=== PATIENT | male | born 1955 | race Caucasian/White ===

== ENCOUNTER 2024-10-12 07:59 | Outpatient (REF) | payer MEDICARE, SELFPAY ==
[2024-10-12 17:57] LABS: MANUAL DIFF FLAG NO
[2024-10-12 18:02] LABS: Basophils Percent Auto 0.3 % (0-2); Eosinophils Absolute Auto 0.3 X10*3/uL (0.0-0.4); Eosinophils Percent Auto 2.7 % (0-4); Hematocrit 42.8 % (42.0-52.0); Hemoglobin 14.4 g/dl (14.0-18.0); Imm Gran Abs Auto 0.04 X10*3/uL (0.00-0.03); Imm Gran Pct Auto 0.4 % (0.0-0.4); Lymphocytes Percent Auto 21.4 % (20-40); Mean Corpuscular HGB Conc 33.6 g/dl (31.0-36.0); Mean Corpuscular Hemoglobin 32.3 pg (27.0-33.0); Mean Platelet Volume 10.5 fL (9.4-12.4); Monocytes Absolute Auto 0.7 X10*3/uL (0.1-1.2); Monocytes Percent Auto 7.3 % (2-11); Neutrophils Absolute Auto 6.2 x10*3/uL (2.0-8.3); Neutrophils Percent Auto 67.9 % (45-73); Platelet Count 225 X10*3/uL (160-400); Red Blood Count 4.46 X10*6/uL (4.60-5.80); Red Cell Distribution Width 14.3 % (11.0-16.0); White Blood Count 9.1 X10*3/uL (4.8-10.8)
[2024-10-12 18:19] LABS: Alanine Aminotransferase 43 U/L (0-40); Aspartate Amino Transferase 49 U/L (5-37); C Reactive Protein 0.24 mg/dL (< or = 0.50); Estimated Glomerular Filt Rate 52
[2024-10-12 18:51] LABS: Erythrocyte Sedimentation Rate 2 MM/HR (0-15)
[2024-10-13 04:30] LABS: HBS Num1 196.28 mIU/mL (0-7.99); HBc Num1 0.07 S/CO (0.00-0.79); HBsAGNum1 0.48 S/CO (0.00-0.99); Hepatitis B Core Antibody Nonreactive (Nonreactive); Hepatitis B Surface Antigen Negative (Negative); ~HepC Num1 0.08 S/CO (0.00-0.79); ~Hepatitis B Surface Antibody REACTIVE (Nonreactive); ~Hepatitis C Antibody Nonreactive (Nonreactive)
[2024-10-15 18:04] LABS: TS Negative Control Passed; TS Panel A 0; TS Panel B 0; TS Positive Control Passed; TSpotTB Negative (Negative)
== END 2024-10-12 08:00 | disposition home or self-care (01) ==
LOC: HO.HKASLDS 07:59
PROVIDERS: Visit Provider Internal Medicine Rheumatology
DX: M07.60 Enteropathic arthropathies, unspecified site (principal); M65.311 Trigger thumb, right thumb; K50.90 Crohn's disease, unspecified, without complications; Z79.60 Long term (current) use of unspecified immunomodulators and immunosuppressants
CPT/HCPCS: 20550; 20552; 36415; 82565; 84450; 84460; 85025; 85652; 86140; 86481; 86704; 86706; 86803; 87340; 99212; J2003; J3301

== ENCOUNTER 2024-10-12 07:59 | Outpatient (AMB) | payer MEDICARE, SELFPAY ==
[2024-10-12 08:01] VITALS: BP 120/70; PULSE 68; O2SAT 97; BMI 29.5
--- NOTE | 2024-10-12 08:01 | MHC.OFFVIS ---
Vital Signs 10/12/24 08:01 Height 5 ft 4 in Weight 172 lb 2 oz BMI 29.5 BP 120/70 Blood Pressure Location Lt brachial Position Sitting Pulse 68 Pulse Source Pulse Oximeter Pulse Oximetry (%) 97 Intake Visit Reasons: arthritis Intake Note: Patient presents today for follow up on arthritis. Allergies No Known Allergies Allergy (Verified 10/12/24 08:04) HPI HPI arthritis: Details: Hx of enteropathic arthritis. On stelara 90mg every 4 weeks for a few months increased frequency from Q 8 weekly. R second finger is triggering daily sometimes few times a day. He is having increased pain in his right finger. He has decreased mobility and function in his hands. He has history of Crohn's disease with frequent bowel movements at least 7-8 a day. Some of the bowel movements are formed. He has an upcoming endoscopy and colonoscopy He has failed sulfasalazine and Humira. PFSH Family History (Updated 10/12/24 @ 08:13 by Claire Ribeiro CMA) Mother Breast cancer Social History (Updated 10/12/24 @ 08:14 by Claire Ribeiro CMA) Alcohol intake: current Alcohol intake frequency: holidays/special occasions only Alcohol type: beer Patient Tobacco Use Status: Never used Tobacco Review of Systems Const All systems reviewed & are unremarkable except as noted in HPI and below Physical Exam Vital Signs: Last Vital Signs Pulse 68 10/12/24 08:01 BP 120/70 10/12/24 08:01 Pulse Ox 97 10/12/24 08:01 BMI result Body Mass Index 29.5 Const Other: General: Comfortable CVS: RRR Respiratory: clear to auscultation bilaterally. Good respiratory effort Skin: No lesions seen MSK: Tender to palpate right palmar aspect of 1st MCP with nodule palpated. Triggering observed. He has synovitis of MCPs and PIP. He is unable to face man is hands fully. Shoulder abduction 90 degrees with limited full internal and external rotation. He is unable to externally rotate his hips fully. Knee flexion is 90 degrees bilateral. No ankle tenderness or MTP tenderness. Assessment & Plan Assessment & Plan (1) Enteropathic arthritis: Comment: Uncontrolled on Stelara Code(s): M07.60 - Enteropathic arthropathies, unspecified site Category: Medical Plan: He will continue Stelara 90 mg every 4 weeks prescribed by GI Labs and x-rays bilateral hands ordered to assess disease activity He will be having a colonoscopy in early October to evaluate for Crohn's disease activity Return to clinic next month to discuss next steps in treatment. If Crohn's disease is not controlled on Stelara, we will need to change biologic to target both Crohn's disease and inflammatory arthritis. 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 of unspecified immunomodulators and immunosuppressants AMB Joint Injection/Aspiration Today M65.30 - Trigger finger, unspecified finger Erythrocyte Sedimentation Rate Today K50.90 - Crohn's disease, unspecified, without complications, M07.60 - Enteropathic arthropathies, unspecified site C Reactive Protein Today K50.90 - Crohn's disease, unspecified, without complications, M07.60 - Enteropathic arthropathies, unspecified site, M65.30 - Trigger finger, unspecified finger Aspartate Amino Transferase Today Z79.60 - penitentiary (current) use of unspecified immunomodulators and immunosuppressants Complete Blood Count Auto Diff Today 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 ONCE 0.25 mL 0RF NS M65.30 - Trigger finger, unspecified finger Coding Level of Care Code Est Pt Level 4 (05994) Complex EM visit Add On G2211 Diagnoses Enteropathic arthritis M07.60
--- OUTSIDE RECORDS SUMMARY | 2024-10-12 08:02 | XMS_ITS | Continuity of Care Document ---
Author Organization [facility] Address [address] [place] [address]- Care Team Providers Care Disability Rater Name Role Phone Bethany SPANGLER, Lolita Hill Primary Care Physician [place] [facility] [place](s): 08/18/24 - 09/17/24 [facility] [address] [place] [id number]- Encounter Type: Triage Allergies, Adverse Reactions, Alerts No Known Allergies Immunizations Given and Recorded Vaccine Date Status Refusal Reason pneumococcal 20-valent conjugate vaccine 09/25/23 Given influenza virus vaccine, inactivated 06/09/23 Elkin rded influenza virus vaccine, inactivated 07/28/22 Elkin rded influenza virus vaccine, inactivated 07/18/21 Elkin rded influenza virus vaccine, inactivated 06/22/20 Elkin rded influenza virus vaccine, inactivated 11/20/19 Elkin rded influenza virus vaccine, inactivated 07/23/18 Elkin rded influenza virus vaccine, inactivated 07/23/17 Elkin rded influenza virus vaccine, inactivated 07/24/16 Elkin rded influenza virus vaccine, inactivated 07/19/15 Elkin rded SARS-CoV-2 (COVID-19) mRNA-1273 vaccine 01/13/21 R ecorded SARS-CoV-2 (COVID-19) mRNA-1273 vaccine 12/15/20 R ecorded Medications atropine-diphenoxylate 0.025 mg-2.5 mg oral tablet 56 each, 0 Refill(s), TAKE 1 TABLET BY MOUTH FOUR TIMES DAILY FOR 14 DAYS NEEDED FOR LOOSE STOOLS, Refills 0, 07/19/24 8:04:00 AM EDT, Partial fill upon patient request if the prescription is for a schedule II opioid drug. Start Date: 07/19/24 Status: Ordered Repeat number: 1 Contour lancets Contour lancets, See Instructions, # 200 each, Refills 7, Tot. Refills 7, Maintenance, use to checkblood glucose 4 times a day for type 2 dm on insulin pump e11.65, 05/05/22 11:16:00 AM EDT, Supply, 158, cm, 05/05/22 9:08:00 EDT, Height, 78, kg, 04/21/22 10:32:00 EDT, Dry Weight Start Date: 05/05/22 Status: Ordered Quantity: 200.0 Unit: each Repeat number: 8 contour next test strips contour next test strips, See Instructions, # 360 each, Refills 3, Tot. Refills 3, Maintenance, useto check blood glucose 4 times a day on insulin pump e11.65 90 day, 10/06/23 3:58:00 PM EST, Supply, 162.56, cm, 09/29/23 11:04:00 EST, Height, 78, kg, 04/21/22 10:32:00 EDT, Dry Weight Start Date: 10/06/23 Status: Ordered Quantity: 360.0 Unit: each Repeat number: 4 DEXCOM G6 SENSOR DEXCOM G6 SENSOR, See Instructions, # 3 each, Refills 11, Tot. Refills 11, Maintenance, 11.9. use as directed to check blood sugars 4 times daily. change every 10 days, 06/06/24 7:54:00 PM EDT, Compound, 162.56, cm, 05/06/24 8:30:00 EDT, Height Start Date: 06/06/24 Status: Ordered Quantity: 3.0 Unit: each Repeat number: 12 Doxycycline Maintenance, 06/29/20 9:58:00 AM EDT Start Date: 06/29/20 Status: Ordered Repeat number: 1 doxycycline monohydrate 50 mg oral capsule 180 capsule, 0 Refill(s), 0 Refills, 07/19/24 8:04:00 AM EDT, Partial fill upon patient request if the prescription is for a schedule II opioid drug. Start Date: 07/19/24 Status: Ordered Repeat number: 1 Eliquis 5 mg oral tablet 1 tablet = 5 mg, By Mouth, 2 times a day, 2 tablets 2 times a day for first week 1 tablet 2 times aday for remainder of month, # 74 tablet, 1 Refills, Maintenance, 4/9/20 12:10:00 PM EDT, [facility], 158, cm, 01/02/20 13:43:00 EDT, Height, 75, kg, 01/02/20 13:43:00 EDT, Dry Weight Start Date: 01/05/20 Status: Ordered Quantity: 74.0 Unit: tablet Repeat number: 2 Fiasp 100 units/mL injectable solution See Instructions, MAX DAILY DOSE 100 UNITS VIA INSULIN PUMP, # 90 mL, 3 Refills, Maintenance, 01/08/24 3:17:00 PM EDT, [facility], Dx: E11.9; 01/07: replacing Novolog vial, insurance preference, 162.56, cm, 09/29/23 11:04:00 EST, Height, 78, kg, 04/21/22 10:32:00 EDT, Dry Weight Start Date: 01/08/24 Status: Ordered Quantity: 90.0 Unit: mL Repeat number: 4 fluocinolone 0.01% otic solution 20 mL, 0 Refill(s), 0 Refills, 07/19/24 8:04:00 AM EDT, Partial fill upon patient request if the prescription is for a schedule II opioid drug. Start Date: 07/19/24 Status: Ordered Repeat number: 1 Jardiance 25 mg oral tablet 1 tablet, By Mouth, Daily in AM, HIGHER DOSE KEEP UP WITH FLUIDS., # 30 tablet, 11 Refills, Maintenance, 06/08/24 10:41:00 AM EDT, [facility], 162.56, cm, 05/06/24 8:30:00 EDT, Height Start Date: 06/08/24 Status: Ordered Quantity: 30.0 Unit: tablet Repeat number: 1 Lomotil 0.025 mg-2.5 mg oral tablet 1, tablet, By Mouth, 4 times a day, PRN, for 14 days, # 56 tablet, Refills 3, Tot. Refills 3, Acute, for loose stool, 10/04/24 7:49:00 AM EST, 08/09/24 7:49:00 AM EST, Route to Pharmacy Electronically,[id number] Tablet, Partial fill upon patient request if the prescription is for a schedule II opioid drug., 162.56, cm, 07/19/24 14:05:00 EDT, Height Start Date: 08/09/24 Stop Date: 10/04/24 Status: Ordered Quantity: 56.0 Unit: tablet Repeat number: 4 ofloxacin 0.3% otic solution 10 mL, 0 Refill(s), INSTILL 10 DROPS TO AFFECTED EAR DAILY, Refills 0, 07/19/24 8:04:00 AM EDT, Partial fill upon patient request if the prescription is for a schedule II opioid drug. Start Date: 07/19/24 Status: Ordered Repeat number: 1 Omeprazole By Mouth, Daily, 0 Refills, Maintenance, 07/14/18 11:21:57 AM EDT Start Date: 07/14/18 Status: Ordered Repeat number: 1 OMNIPOD DASH MIS 5 PACK OMNIPOD DASH MIS 5 PACK, See Instructions, # 45 Unknown, 3 Refills, Maintenance, USE PODS TO INFUSEINSULIN CONTINUOUSLY VIA INSULIN PUMP. CHANGE POD EVERY 2 DAYS, 02/25/24 8:15:00 AM EDT, 162.56, cm,09/29/23 11:04:00 EST, Height, 78, kg, 04/21/22 10:32:00 EDT, Dry Weight Start Date: 02/25/24 Status: Ordered Quantity: 45.0 Unit: Unknown Repeat number: 1 Omnipod Dash Pods Omnipod Dash Pods, See Instructions, # 9 pack/packet, Refills 3, Tot. Refills 3, Maintenance, Use pods to infuse insulin continously via insulin pump. E11.65, Change pod every 2 days, 02/24/24 12:25:00 PM EDT, 9 each (5 pack of pods) 90 day supply, Supply, 162.56, cm, 09/29/23 11:04:00 EST, Height, 78, kg, 04/21/22 10:32:00 EDT, Dry Weight Start Date: 02/24/24 Status: Ordered Quantity: 9.0 Unit: pack/packet Repeat number: 4 rosuvastatin 10 mg oral tablet 1 tablet, By Mouth, Daily, # 90 tablet, 2 Refills, 03/03/24 6:49:00 AM EDT, [facility], 162.56, cm, 09/29/23 11:04:00 EST, Height, 78, kg, 04/21/22 10:32:00 EDT, Dry Weight Start Date: 03/03/24 Status: Ordered Quantity: 90.0 Unit: tablet Repeat number: 3 Stelara PFS 90 mg/mL subcutaneous solution 1 mL = 90 mg, Subcutaneous Injection, Every 28 days, # 1 each, 5 Refills, Maintenance, 08/18/24 12:52:00 PM EST, Solution, [facility], 162.56, cm, 07/19/24 14:05:00 EDT, Height Start Date: 08/18/24 Stop Date: 02/14/25 Status: Ordered Quantity: 1.0 Unit: each Repeat number: 6 Tylenol 325 mg oral tablet 650 mg, 2, tablet, By Mouth, Every 6 hours, PRN, Refills 0, Maintenance, Pain , Moderate, 07/06/20 11:35:00 AM EDT Start Date: 07/06/20 Status: Ordered Repeat number: 1 Valsartan By Mouth, 0 Refills, Maintenance, 06/07/20 10:20:00 AM EDT Start Date: 06/07/20 Status: Ordered Repeat number: 1 valsartan 80 mg oral tablet 80 mg, 1, tablet, By Mouth, Daily, # 90 tablet, Refills 2, Tot. Refills 2, Maintenance, 02/24/24 3:19:00 PM EDT, Route to Pharmacy Electronically, [facility], Partial fill upon patient request if the prescription is for a schedule II opioid drug., 162.56, cm, 09/29/23 11:04:00 EST, Height, 78, kg, 04/21/22 10:32:00 EDT, Dry Weight Start Date: 02/24/24 Stop Date: 11/20/24 Status: Ordered Quantity: 90.0 Unit: tablet Repeat number: 3 Problem List Condition Confirmation Course Effective Dates Status Health Status Informant Acute pulmonary embolism Confirmed 12/2019 Active Body mass index 25-29 - overweight Confirmed Active Carpal tunnel syndrome, right Confirmed Active CKD (chronic kidney disease) stage 3, GFR 30-59 ml/min Confirmed Active Crohn's disease Confirmed Active Diabetes mellitus Confirmed Active dm2 Confirmed Active 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 Excessive sleepiness 2 Confirmed Active Hypercholesterolemia Confirmed Active Hyperlipidemia Confirmed Active Hypertension Confirmed Active Hyperthyroidism Confirmed Active Hypertriglyceridemia Confirmed Active Fecal incontinence Confirmed Active Injury of brachial plexus, right Confirmed Active Not getting enough sleep Confirmed Active Obese class I Confirmed Active Other Pain Disorders Related to Psychological Factors Confirmed Active Pain in upper limb, right Confirmed Active Rotator cuff repair 3 Confirmed 11/27/10 Active Shoulder pain Confirmed Active Therapy outcome measure 4 Confirmed Active 1tx with sulfasalazine, controlled. 2Epworth Sleepiness Scale: 10 on 07/04/2011. 3Right shoulder open rotator cuff repair with associated subacromial decompression for right shoulder rotator cuff tear involving the supraspinatus and subscapularis tendon by Jefferson Seo M.D. at [facility]. 4Initial Oswestry Disability Index: 8% ( minimal disability ) on 07/04/2011. Social History Social History Type Response Smoking Status Never (less than 100 in lifetime) entered on: 02/28/20 Sex Sex Representation Male (finding) Patient Care team information Care Team Personnel Name: Mesha Daniel RN Position: [facility] RN Member Role: Primary Care Nurse Name: Lolita Sims MD Position: [facility] Resident Member Role: PCP Address: [address] [facility] [address] Telecom: Name: Martínez Kevin MD Position: [facility] Renal MD Member Role: Lifetime Consulting Physician Address: [address] [facility] [address] [facility] [address] Telecom: Name: Katherin Meyer RN Position: [facility] RN Member Role: Primary Care Nurse Name: Sky Bhatt RN Position: [facility] ED RN W/OE and Tasks Member Role: Primary Care Nurse Name: Evi La Position: [facility] Outreach Member Role: Lifetime Consulting Physician Care Team Related Persons Name: MARCIAL FISHER Name: EVIN ALTMAN Insurance Providers Guarantor name: SAM ANUPAMA Health Plan Information #: 1 Payer: MEDICARE PART B OUTPT Member Number: NA Policy Number: NA Group Number: NA Health Plan Information #: 2 Payer: MEDEX Member Number: NA Policy Number: NA Group Number: NA
--- OUTSIDE RECORDS SUMMARY | 2024-10-12 08:02 | XMS_ITS | Continuity of Care Document ---
Author Organization [facility] Address [address] [place] [address] [address] [place] [address]- Care Team Providers Care Air Conditioning Manager Name Role Phone Bethany SPANGLER, Lolita Hill Primary Care Physician Encounter [facility] Date(s): 08/23/24 - 09/22/[address] [place], [place] [address] Attending Physician: Admtr, [id number] Admitting Physician: Admtr, Ar8 Referring Physician: Admtr, Ar8 Encounter Type: Triage Allergies, Adverse Reactions, Alerts [...] month, # 74 tablet, 1 Refills, Maintenance, 01/05/20 12:10:00 PM EDT, [facility], 158, cm, 01/02/20 13:43:00 EDT, Height, 75, kg, 01/02/20 13:43:00 EDT, Dry Weight Start Date: 01/05/20 Status: Ordered Quantity: 74.0 Unit: tablet Repeat number: 2 Fiasp 100 units/mL injectable solution See Instructions, MAX DAILY DOSE 100 UNITS VIA INSULIN PUMP, # 90 mL, 3 Refills, Maintenance, 01/08/24 3:17:00 PM EDT, [facility], Dx: E11.9; 01/07: replacing [...] 11 Refills, Maintenance, 06/08/24 10:41:00 AM EDT, [facility], 162.56, cm, 05/06/24 8:30:00 EDT, Height Start Date: 06/08/24 Status: Ordered Quantity: 30.0 Unit: tablet Repeat number: 1 Lomotil 0.025 mg-2.5 mg oral tablet 1, tablet, By Mouth, 4 times a day, PRN, for 14 days, # 56 tablet, Refills 3, Tot. Refills 3, Acute, for loose stool, 10/04/24 7:49:00 AM EST, 08/09/24 7:49:00 AM EST, [id number] Tablet, Partial fill upon patient request if [...] tablet, 2 Refills, 03/03/24 6:49:00 AM EDT, [facility], 162.56, cm, 09/29/23 11:04:00 EST, Height, 78, kg, 04/21/22 10:32:00 EDT, Dry Weight Start Date: 03/03/24 Status: Ordered Quantity: 90.0 Unit: tablet Repeat number: 3 Stelara PFS 90 mg/mL subcutaneous solution 1 mL = 90 mg, Subcutaneous Injection, Every 28 days, # 1 each, 5 Refills, Maintenance, 08/18/24 12:52:00 PM EST, Solution, [facility], 162.56, cm, 07/19/24 14:05:00 EDT, Height [...] 3:19:00 PM EDT, Route to Pharmacy Electronically, [facility], Partial fill upon patient [...] subscapularis tendon by Jefferson Seo M.D. at [facility]. 4Initial Oswestry Disability Index: 8% ( minimal disability ) on 07/04/2011. Social History Social History Type Response Smoking Status Never (less than 100 in lifetime) entered on: 02/28/20 Sex Sex Representation Male (finding) Patient Care team information Care Team Personnel Name: Mesha Daniel RN Position: [facility] RN Member Role: Primary Care Nurse Name: Lolita Sims MD Position: [facility] Resident Member Role: PCP Address: [address] [facility] [address] Telecom: Name: Martínez Kevin MD Position: [facility] Renal MD Member Role: Lifetime Consulting Physician Address: [address] [facility] [address] [facility] [address] Telecom: Name: Katherin Meeyr RN Position: [facility] RN Member Role: Primary Care Nurse Name: Sky Bhatt RN Position: [facility] ED RN W/OE and Tasks Member Role: Primary Care Nurse Name: Evi La Position: [facility] Outreach Member Role: Lifetime Consulting Physician Care [...]
== END 2024-10-12 08:52 | disposition home or self-care (01) ==
PROVIDERS: Visit Provider Internal Medicine Rheumatology
DX: M07.60 Enteropathic arthropathies, unspecified site (principal)
CPT/HCPCS: 99214; G2211

== ENCOUNTER 2024-11-17 08:44 | Outpatient (AMB) | payer MEDICARE, SELFPAY ==
--- NOTE | 2024-11-17 08:45 | A.OFFVIS_ITS ---
Vital Signs 11/17/24 08:49 Height 5 ft 4 in Weight 169 lb 6 oz BMI 29.1 BP 108/86 Blood Pressure Location Rt brachial Position Sitting Pulse 86 Pulse Source Pulse Oximeter Temp 98 F Pulse Oximetry (%) 96 Oxygen Delivery Method Room Air Intake Visit Reasons: 1 mo follow up Intake Note: Pt present today for Enteropathic arthritis follow up. Accompanied by: Self / Same As Patient Allergies No Known Allergies Allergy (Verified 11/17/24 08:46) HPI HPI 1 mo follow up: Details: He had colonscopy 11/03/2024. He had baloon dilatation of a stricture and biopsies were taken but he does not know results. During procedure he remembers being told that crohn's disease is active. PFSH Family History Mother Breast cancer Social History Alcohol intake: current Alcohol intake frequency: holidays/special occasions only Alcohol type: beer Patient Tobacco Use Status: Never used Tobacco Review of Systems Const All systems reviewed & are unremarkable except as noted in HPI and below Physical Exam Vital Signs: Last Vital Signs Temp 98 F 11/17/24 08:49 Pulse 86 11/17/24 08:49 BP 108/86 11/17/24 08:49 Pulse Ox 96 11/17/24 08:49 Oxygen Delivery Method Room Air 11/17/24 08:49 BMI result Body Mass Index 29.1 Const Other: General: Comfortable CVS: RRR Respiratory: clear to auscultation bilaterally. Good respiratory effort Skin: No lesions seen MSK: No triggering observed. He has synovitis of MCPs and PIP. 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 Shoulder abduction 160 degrees with good internal and external rotation. He is unable to externally rotate his hips fully. Knee flexion is 90 degrees bilateral. No ankle tenderness or MTP tenderness. Assessment & Plan Assessment & Plan (1) Enteropathic arthritis: Comment: Inflammatory arthritis is not controlled on Stelara. 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 CT enterography 07/2024 study showed active inflammation in the distal small bowel and normal liver. Patient is symptomatic from both Crohn's (increased frequency of bowel movements/diarrhea) and inflammatory arthritis on Stelara. He has been optimized on treatment on Stelara for Crohn's disease from reducing frequency to every 8 weeks to every 4 weeks. We discussed alternative immunosuppressive therapy. We discussed changing Stelara to infliximab. His inflammatory arthritis has been uncontrolled for at least 6 years. Discussed side effects, benefits and drug monitoring on infliximab. Skyrizi is another agent that can be considered. Recent labs from 09/2024 revealed mild transaminitis. Labs from 02/2024 reviewed from [facility] records revealed normal liver function tests. He rarely drinks alcohol. I will repeat labs this visit. In the past he has declined prednisone course to help treat inflammatory arthritis due to hyperglycemia on prednisone as patient is diabetic requiring insulin pump and history of cataracts. I spoke with Courtney Lucio NP from colorectal surgery team and GI PA Nickolas Briscoe about Remicade today. Nickolas Briscoe is in agreement to start Remicade as he reports that it works well for individuals with Crohn's disease and strictures. He is aware of recent labs revealing mild transaminitis and we will follow up with patient soon. He did not recommend further imaging as CT enterography revealed normal liver. Rheumatology history: He was on Humira for years for Crohn's disease prescribed by GI. Humira frequency was increased to weekly without improvement of inflammatory arthritis. Sulfasalazine added 07/2019-07/2020 d/c ineffective. He had a bad reaction on Imuran and may have had transaminitis. Ustekinumab 06/2020 to present ineffective for inflammatory arthritis and Crohn's disease. He also has scalp psoriasis. He did not tolerate Methotrexate 06/05/2021 SC injection but had improvement in chronic synovial thickening of MCPs on po MTX 12.5mg qw 07/04/2021 clinic visit then was lost to follow-up. Code(s): M07.60 - Enteropathic arthropathies, unspecified site Category: Medical Plan: He will continue Stelara 90 mg every 4 weeks prescribed by GI Labs ordered to check liver panel. x-rays bilateral hands ordered to assess disease activity ? Erosive inflammatory arthritis Return to clinic in 3 months (2) Trigger finger of right thumb: Comment: Resolved with last cortisone injection Code(s): M65.311 - Trigger thumb, right thumb Category: Medical Plan: Monitor clinically (3) Crohn disease: Code(s): K50.90 - Crohn's disease, unspecified, without complications Category: Medical Qualifiers: Digestive disease complication type: unspecified complication Gastrointestinal tract location: small intestine Qualified Code(s): K50.019 - Crohn's disease of small intestine with unspecified complications Plan: See above Orders: Referrals Infusion Center Notification K50.90 - Crohn's disease, unspecified, without complications, M07.60 - Enteropathic arthropathies, unspecified site, M65.30 - Trigger finger, unspecified finger Coding Level of Care Code Est Pt Level 5 (91223) Complex EM visit Add On G2211 Diagnoses Enteropathic arthritis M07.60 Trigger finger of right thumb M65.311 Crohn's disease of small intestine with complication K50.019 Digestive disease complication type: unspecified complication Gastrointestinal tract location: small intestine Time Spent (min) 60
[2024-11-17 08:49] VITALS: BP 108/86; PULSE 86; TEMP 36.6; O2SAT 96; BMI 29.1
--- OUTSIDE RECORDS SUMMARY | 2024-11-17 09:10 | XMS_ITS | Clinical Summary ---
Author Organization [facility] Address [phone] [facility] [place] [address] Care Team Providers Care Police Booking Officer Name Role Phone Jose Dukes MD Primary Care Provider Keila Hodge MD, MPH Unavailable +1 [phone] Allergies No known active allergies Medications Medication Sig Dispensed Refills Start Date End Date Status VITAMIN B COMPLEX ORAL Take by mouth. Active apixaban (ELIQUIS ORAL) Take 5 mg by mouth 2 (two) times a day. Active metFORMIN (GLUCOPHAGE) 500 MG tablet Active valsartan (DIOVAN) 80 MG tablet 09/10/2021 Active rosuvastatin (CRESTOR) 10 MG tablet Take by mouth daily. 12/13/2020 Active colesevelam (WELCHOL) 625 mg tablet Take 1,875 mg by mouth. 03/12/2021 Active insulin lispro (HUMALOG U-100 INSULIN) 100 unit/mL Crtg Insulin pump Basal rate 12am-6am- 1.65 units/hour 6am-12pm- 1.7 units/hour 12pm-6pm- 2 units/hour 6pm-12pm- 2.5 units/hour Active empagliflozin (JARDIANCE) 25 mg tablet Take 25 mg by mouth. 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 denies any symptoms currently. Arthritis DM (diabetes mellitus) Overview (10/15/2021): type 2. in setting fo steroid for crohn's disease. currently on Insulin Pump. Most recent A1c 7.3 per patient. average BG 80-115 in am. HLD (hyperlipidemia) HTN (hypertension) Social History Tobacco Use Types Packs/Day Years Used Date Smoking Tobacco: Former Cigarettes Smokeless Tobacco: Never Comments:in high [place] Alcohol Use Standard Drinks/Week Comments Yes 0 (1 standard drink = 0.6 oz pur e alcohol) 2 can/month Education Answer Date Recorded Are you interested in more education? Not on elaine e 01/22/2023 Are you concerned about learning? Not on file 01/22/2023 No 01/22/2023 No 01/22/2023 Digital Access Answer Date Recorded No 02/22/2023 No 02/22/2023 No 02/22/2023 Reliable internet access at home? Not on file 02/22/2023 Device with a working camera? Not on file Sex and Gender Information Value Date Recorded Sex Assigned at Not on file Gender Identity Not on file Sexual Orientation Not on file Last Filed Vital Signs Vital Sign Reading Time Taken Comments Blood Pressure 115/60 10/19/2021 8:58 AM EST Pulse 83 10/19/2021 7:31 AM EST Temperature 36.6 ??C (97.8 ??F) 12/19/2022 10:21 AM E DT Respiratory Rate 18 10/19/2021 7:31 AM EST Oxygen Saturation 94% 10/19/2021 7:31 AM EST Inhaled Oxygen Concentration - - Weight 77.1 kg (170 lb) 12/19/2022 10:21 AM EDT Height 162.6 cm (5' 4 ) 12/19/2022 10:21 AM EDT Body Mass Index 29.18 12/19/2022 10:21 AM EDT Plan of Treatment Health Maintenance Due Date Last Done Comments Adult Td,Tdap Booster 1955 BLOOD PRESSURE 1955 DEPRESSION SCREENING 1968 SMOKING Hx and SMOKELESS TOBACCO SCREENING 1969 HEPATITIS B SCREENING 1974 HEPATITIS C SCREENING 1974 PNEUMOCOCCAL VACCINES (50+ years) (1 of 2 - PCV) 1975 COLOGUARD 2001 COLONOSCOPY 2001 COLORECTAL CANCER SCREENING 2001 FIT TEST 2001 FOBT 2001 SIGMOIDOSCOPY 2001 VIRTUAL COLONOSCOPY 2001 ZOSTER VACCINES (1 of 2) 2006 RSV VACCINE (1 - Risk 60-74 years 1-dose series) 2016 ABDOMINAL AORTIC ANEURYSM (AAA) SCREENING 2021 DIABETIC EYE EXAM 10/15/2021 HEMOGLOBIN A1C 04/14/2022 10/15/2021 CREATININE LEVEL 10/19/2022 10/19/2021, 10/15/2021 POTASSIUM LEVEL 10/19/2022 10/19/2021, 10/15/2021 INFLUENZA VACCINE (#1) 2024 2, 07/18/2021, 06/22/2020, Additional history exists COVID-19 VACCINE ( season) 2024 01/13/2021, 12/15/2020 HEPATITIS A VACCINES Aged Out No long er eligible based on patient's age to complete this topic HEPATITIS B VACCINES Aged Out No long er eligible based on patient's age to complete this topic HIB VACCINES Aged Out No longer eligi ble based on patient's age to complete this topic MENINGOCOCCAL VACCINES (ACWY) Aged Out No longer eligible based on patient's age to complete this topic Medical Devices Implanted Type Area Statistics Manager Device Identifier Shelf Expiration Date Model / Serial / Lot Femoral Head 28mm Plus 1.5 Articuleze Biolox Delta Ceramic 09/10 Tapered - [id number] Implanted:Qty: 1 on 10/18/2021 by Dez Sykes MD at [facility] STANDARD Left: Hip J[employer]J [facility] [facility] [id number] / / Hip Hardware Hip Liner [id number] Acetabular Vivacit-E Dm - [id number] Implanted:Qty: 1 on 10/18/2021 by Dez Sykes MD at [facility] Left: Hip JAZ / DIV OF [employer] 08/07/2026 [id number] / / [id number] Description:Transferred from one time implant Acetabular Shell Sz 60 Multiholemm Liner G 08 - [id number] Implanted:Qty: 1 on 10/18/2021 by Dez Sykes MD at [facility] Left: Hip [employer] [id number] 10/20/2028 [id number] / / [id number] Screw Bone 6.5x25mm Hip Acetabular Dome G7 Low Profile - [id number] Implanted:Qty: 1 on 10/18/2021 by Dez Sykes MD at [facility] Left: Hip [employer] [id number] 02/27/2031 [id number] / / [id number] Screw Dome 6.5x35mm G7 Aceetabular Low Profile Hip - [id number] Implanted:Qty: 1 on 10/18/2021 by Dez Sykes MD at [facility] Left: Hip [employer] [id number] 11/29/2030 [id number] / / [id number] Screw Bone 6.5x30mm Hip Dome G7 Acetabular Low Profile - [id number] Implanted:Qty: 1 on 10/18/2021 by Dez Sykes MD at [facility] Left: Hip [employer] [id number] 03/28/2031 [id number] / / [id number] Screw Bone 6.5x15mm Acetabular G7 Low Profile Dome - [id number] Implanted:Qty: 1 on 10/18/2021 by Dez Sykes MD at [facility] Left: Hip [employer] [id number] 03/13/2031 [id number] / / [id number] Screw Bone 6.5x15mm Acetabular G7 Low Profile Dome - [id number] Implanted:Qty: 1 on 10/18/2021 by Dez Sykes MD at [facility] Left: Hip [employer] [id number] 03/13/[id number] / / [id number] Acetabular Liner 46mm Component Dual Mobility G7 - [id number] Implanted:Qty: 1 on 10/18/2021 by Dez Sykes MD at [facility] Left: Hip JAZ / DIV OF [employer] [id number] 07/30/2031 [id number] / / [id number] Hip Stem Sz 7 Actis Duofix Cementless Std Collar - [id number] Implanted:Qty: 1 on 10/18/2021 by Dez Sykes MD at [facility] Left: Hip JNJ [facility] [id number] 08/27/2031 [id number] / / [id number] Procedures Procedure Name Priority Date/Time Associated Diagnosis Comments BASIC METABOLIC PANEL Routine 10/19/2021 8:46 AM EST HEMOGLOBIN A1C Routine 10/15/2021 12:51 PM EST DM (diabetes mellitus) from Last 3 Months or Most Recently Relevant to Health Maintenance Results * (ABNORMAL) Basic metabolic panel (10/19/2021 8:46 AM EST) SODIUM 135(L) 136 - 145 mmol/L [facility] POTASSIUM 5.1 3.4 - 5.1 mmol/L [facility] CHLORIDE 101 98 - 107 mmol/L [facility] CO2 22 22 - 31 mmol/L [facility] BUN 32(H) 6 - 23 mg/dL [facility] CREATININE 1.61(H) 0.50 - 1.20 mg/dL [facility] GLUCOSE 352(H) 70 - 100 mg/dL [facility] CALCIUM 8.4(L) 8.8 - 10.7 mg/dL [facility] EGFR 47(L) >59 mL/min/1. 73m2 [facility] Comment:Estimated glomerular filtration rate calculated using the CKD-EPI refit equation. ANION GAP 12 7 - 17 mmol/L [facility] Blood 10/19/2021 8:46 AM EST 10/19/2021 8:54 AM EST Dez Sykes MD LAB BLOOD ORDERABLES [facility] [address] [place] [address] * (ABNORMAL) Hemoglobin A1c (10/15/2021 12:51 PM EST) HEMOGLOBIN A1C 7.0(H) 4.3 - 5.8 % [facility] Blood 10/15/2021 12:5 1 PM EST 10/15/2021 12:56 PM EST Dez Sykes MD LAB BLOOD ORDERABLES Performing Organization Address [facility] Co de Phone Number [facility] [address] [place], [place] [phone] from Last 3 Months or Most Recently Relevant to Health Maintenance Abdoulaye Castanon Personal/Famil y Self [address] [place] [address] Abdoulaye Castanon Personal/Famil y Self [address] [place] [address] Abdoulaye Castanon Personal/Famil y Self [address] [place] [address] Abdoulaye Castanon Personal/Famil y Self [address] [place] [address] Abdoulaye Castanon Personal/Famil y Self [address] [place] [address] Advance Directives * Full Code (Latest Code Status on File) Date Activated Date Inactivated Comments 10/18/2021 7:59 PM Question Answer Comments Code Status Confirmed With: Patient Care Teams Police Booking Officer Relationship Specialty Start Date End Date Jose Dukes MD [address] [place] [address] [phone] PCP - General Internal Medicine 12/26/14 Keila Hodge MD, MPH [address] [place] [address], [address] [place] [address] [email or web address] Cardiology 10/15/21 Additional Source Comments The information contained in this document represents components of the legal health record. It is not the complete legal health record.[facility]
--- OUTSIDE RECORDS SUMMARY | 2024-11-17 09:11 | XMS_ITS | Clinical Summary ---
Author Organization [facility] Address [address] [place] [address] [address] [place] [address] Phone Care Team Providers Care Behavioral Health Rn Name Role Phone Rosanna Talbert MD Primary Care Provider [phone] Allergies No known active allergies Medications zolpidem CR (AMBIEN CR) 6.25 MG CR tablet Take 6.25 mg by mouth at night if needed for sleep Do not crush, chew, or split. Active apixaban (ELIQUIS) 5 MG tablet Take 5 mg by mouth in the morning and 5 mg in the evening. Active insulin aspart (NovoLOG) 100 UNIT/ML patient supplied pump Inject under the skin continuously Active omeprazole OTC (PriLOSEC OTC) 20 MG EC tablet Take 20 mg by mouth if needed Do not crush, chew, or split. Active rosuvastatin (CRESTOR) 10 MG tablet Take 10 mg by mouth 1 (one) time each day Active valsartan (DIOVAN) 40 MG tablet Take 40 mg by mouth 1 (one) time each day Active Empagliflozin (Jardiance) 25 MG tablet Take 25 mg by mouth 1 (one) time each day in the morning Active doxycycline (PERIOSTAT) 20 MG tablet Take 20 mg by mouth in the morning and 20 mg in the evening. Take with a full glass of water and do not lie down for at least 30 minutes after.. Active Multiple Vitamin (multivitamin) tablet Take 1 tablet by mouth 1 (one) time each day Active Turmeric (QC TUMERIC COMPLEX PO) Take 1,000 mg by mouth 1 (one) time each day Active Active Problems Problem Noted Date Diagnosed Date Stage 3b chronic kidney disease 12/28/2023 Diabetes mellitus, not otherwise specified 12/27 Pulmonary embolism 12/24/2023 Crohn's disease 12/24/2023 Complex regional pain syndrome 12/24/2023 Type 2 diabetes mellitus wit h other diabetic kidney complication 12/24/2023 Dyslipidemia 12/24/2023 Hypertension 12/24/2023 Hyperthyroidism 12/24/2023 Obstructive sleep apnea syndrome 12/24/2023 Resolved Problems Problem Noted Date Diagnosed Date Resolved Date Carpal tunnel syndrome 12/24/202306/27 Hypertriglyceridemia 12/24/2023 024 Social History Tobacco Use Types Packs/Day Years Used Date Smoking Tobacco: Never Smokeless Tobacco: Never Tobacco Cessation:Counseling Given: Not Answered Alcohol Use Standard Drinks/Week Comments Yes 0 (1 standard drink = 0.6 oz pur e alcohol) Sex and Gender Information Value Date Recorded Sex Assigned at Not on file Legal Sex Male 11:40 AM EST Gender Identity Not on file Sexual Orientation Not on file Last Filed Vital Signs Vital Sign Reading Time Taken Comments Blood Pressure 105/73 06/29/2024 8:44 AM EDT Pulse 80 06/29/2024 8:44 AM EDT Temperature - - Respiratory Rate - - Oxygen Saturation 97% 06/29/2024 8:44 AM EDT Inhaled Oxygen Concentration - - Weight 78.7 kg (173 lb 9.6 oz) 06/29/2024 8:44 A M EDT Height 160 cm (5' 3 ) 06/29/2024 8:44 AM EDT Body Mass Index 30.75 06/29/2024 8:44 AM EDT Plan of Treatment Upcoming Encounters Date Type Department Care Team (Late st Contact Info) Description 12/29/2024 8:00 AM EDT Office Visit [facility] [address] [address] Martínez Townsend MD [address] [address] Health Maintenance Due Date Last Done Comments Pneumococcal Vaccine: 65+ Ye ars (1 of 2 - PCV) 1962 Colorectal Cancer Screening: Annual FOBT 2005 Colorectal Cancer Screening: Colonoscopy 2005 Colorectal Cancer Screening: Sigmoidoscopy 2005 Diabetes: Hemoglobin A1C 11/04/2023 Diabetes: Ophthalmology Exam 11/04/2023 Diabetes: Pedal Pulse Checked 11/04/2023 Diabetes: Sensory Foot Exam 11/04/2023 Diabetes: Visual Foot Exam 11/04/2023 Influenza Vaccine (#1) 2024 Hepatitis B Vaccine Aged Out No longe r eligible based on patient's age to complete this topic Insurance MEDICARE [facility] MEDICARE [facility] Care Teams Behavioral Health Rn Relationship Specialty Start Date End Date Rosanna Talbert MD [address] [place] [address] PCP - General Internal Medicine 06/29/24
--- OUTSIDE RECORDS SUMMARY | 2024-11-17 09:11 | XMS_ITS | Encounter Summary ---
Author Organization [facility] Address [phone] [facility] [place] [address] Care Team Providers Care Sleeve Separator Name Role Phone Jose Dukes MD Primary Care Provider Keila Hodge MD, MPH Unavailable + -[phone] Encounter Details Date Type Department Care Team (Late st Contact Info) Description 10/23/2021 Procedure Pass [facility] Periop [address] [place] [address] Social History Tobacco Use Types Packs/Day Years Used Date Smoking Tobacco: Former Cigarettes Smokeless Tobacco: Never Comments:in high [place] Alcohol Use Standard Drinks/Week Comments Yes 0 (1 standard drink = 0.6 oz pur e alcohol) 2 can/month Sex and Gender Information Value Date Recorded Sex Assigned at Not on file Gender Identity Not on file Sexual Orientation Not on file documented as of this encounter Plan of Treatment Not on file documented as of this encounter Visit Diagnoses Not on filedocumented in this encounter Care Teams Sleeve Separator Relationship Specialty Start Date End Date Jose Dukes MD [address] [place] [address] PCP - General Internal Medicine 12/26/14 Keila Hodge MD, MPH [address] [place] [address], [address] [place] [address] Cardiology 1/18/22 documented as of this encounter Additional Source Comments The information contained in this document represents components of the legal health record. It is not the complete legal health record.[facility]
--- OUTSIDE RECORDS SUMMARY | 2024-11-17 09:11 | XMS_ITS | Encounter Summary ---
Author Organization [facility] Address [phone] [facility] [place] [address] Care Team Providers Care Factory Process Workers Name Role Phone Jose Dukes MD Primary Care Provider Keila Hodge MD, MPH Unavailable + [phone] Encounter Details Date Type Department Care Team (Late st Contact Info) Description 10/18/2021 Procedure Pass [facility] Periop [address] [place] [address] Social History Tobacco Use Types Packs/Day Years [...] on filedocumented in this encounter Care Teams Factory Process Workers Relationship Specialty Start Date End Date Jose Dukes MD [address] [place] [address] PCP - General Internal Medicine 12/26/14 Keila Hodge MD, MPH [address] [place] [address], [address] [place] [address] Cardiology 1/18/22 documented as of this encounter Additional Source Comments The information contained in this document represents components of the legal health record. It is not the complete legal health record.[facility]
== END 2024-11-17 09:14 | disposition home or self-care (01) ==
PROVIDERS: Visit Provider Internal Medicine Rheumatology
DX: M07.60 Enteropathic arthropathies, unspecified site (principal); M65.311 Trigger thumb, right thumb; K50.019 Crohn's disease of small intestine with unspecified complications
CPT/HCPCS: 99215; G2211

== ENCOUNTER 2024-11-17 08:44 | Outpatient (REF) | payer MEDICARE, SELFPAY ==
--- OUTSIDE RECORDS SUMMARY | 2024-11-17 10:02 | XMS_ITS | Clinical Summary ---
Author Organization [facility] Address [address] [place] [address] [address] [place] [address] Phone Care Team Providers Care Sleeping Car Service Attendant Name Role Phone Rosanna Talbert MD Primary Care Provider +1- [phone] Allergies No known active allergies Medications zolpidem [...] Visit [facility] [address] [address] Martínez Townsend MD [address] [address] Health Maintenance Due Date Last [...] age to complete this topic Insurance MEDICARE [facility] MEDICARE [facility] Care Teams Sleeping Car Service Attendant Relationship Specialty Start Date End Date Rosanna Talbert MD [address] [place] [address] PCP - General Internal Medicine 06/29/24
[2024-11-17 18:30] LABS: Alanine Aminotransferase 40 U/L (0-40); Alkaline Phosphatase 77 U/L (39-117); Aspartate Amino Transferase 49 U/L (5-37); Bilirubin Direct 0.3 mg/dL (0.0-0.5); Bilirubin Total 0.7 mg/dL (0.0-1.0); Total Protein 7.2 g/dL (6.5-8.0)
== END 2024-11-17 08:45 | disposition home or self-care (01) ==
LOC: HO.HKASLDS 08:44
PROVIDERS: Visit Provider Internal Medicine Rheumatology
DX: Z13.89 Encounter for screening for other disorder (principal)
CPT/HCPCS: 36415; 80076

== ENCOUNTER 2024-11-17 11:32 | Outpatient (REF) | payer MEDICARE, SELFPAY ==
--- NOTE | ~2024-11-17 | XR_ITS ---
EXAMINATION: XR HAND, LEFT CLINICAL INFORMATION: M07.60 - Enteropathic arthropathies, unspecified site COMPARISON: None available. TECHNIQUE: PA, lateral, and oblique views of the left hand. FINDINGS: Joint space narrowing involving the distal interphalangeal joints of the digits. Subchondral cyst in the radial aspect base of the middle phalanx fourth digit. No acute cortical disruption or malalignment. No subcutaneous emphysema. 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 Electronically signed by: Nathaniel Askew MD 11/17/2024 03:49 PM [facility]
--- NOTE | ~2024-11-17 | XR_ITS ---
EXAMINATION: XR HAND, RIGHT CLINICAL INFORMATION: M07.60 - Enteropathic arthropathies, unspecified site COMPARISON: None available. TECHNIQUE: PA, lateral, and oblique views of the right hand. FINDINGS: Subchondral cyst formation joint space narrowing and sclerosis and the articular surface of the first and second metacarpophalangeal joints. Mild sclerotic articular surface of the distal interphalangeal joints first, second and third digits. Degenerative changes in the radiocarpal joints and first and second carpometacarpal joints. No acute cortical disruption. No gross malalignment. XR/XR hand RT min 3V IMPRESSION: Moderate to severe osteoarthrosis involving mostly the second metacarpophalangeal joint. Electronically signed by: Nathaniel Askew MD 11/17/2024 03:51 PM [facility]
--- OUTSIDE RECORDS SUMMARY | 2024-11-17 12:54 | XMS_ITS | Clinical Summary ---
Author Organization [facility] Address [phone] [facility] [place] [address] Care Team Providers Care Coining Press Operator Name Role Phone Jose Dukes MD Primary Care Provider Keila Hodge MD, MPH Unavailable +[phone] Allergies No known active allergies Medications Medication [...] disease Overview (10/15/2021): currently stelltevin monthly. 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 [...] this topic Medical Devices Implanted Type Area Baseball Sewer Hand Device Identifier Shelf Expiration Date Model / Serial / Lot Femoral Head 28mm Plus 1.5 Articuleze Biolox Delta Ceramic 09/10 Tapered - [id number] Implanted:Qty: 1 on 10/18/2021 by Dez Sykes MD at [facility] STANDARD Left: Hip JNJ [facility] [id number] / / Hip Hardware Hip Liner [id number] Acetabular Vivacit-E Dm - [id number] Implanted:Qty: 1 on 10/18/2021 by Dez Sykes MD at [facility] Left: Hip JAZ / DIV OF [employer] 08/07/2026 [id number] / / [id number] Description:Transferred from one time implant Acetabular Shell Sz 60 Multiholemm Liner G 08 - [id number] Implanted:Qty: 1 on 10/18/2021 by Dez Sykes MD at [facility] Left: Hip [employer] [id number] 10/20/2028 [id number] / / [id number] Screw Bone 6.5x25mm Hip Acetabular Dome G7 Low Profile - [id number] Implanted:Qty: 1 on 10/18/2021 by Dez Sykes MD at [facility] Left: Hip [employer] [id number] 02/27/2031 [id number] / / [id number] Screw Dome 6.5x35mm G7 Aceetabular Low Profile Hip - [id number] Implanted:Qty: 1 on 10/18/2021 by Dez Sykes MD at [facility] Left: Hip [employer] [id number] 11/29/2030 [id number] / / [id number] Screw Bone 6.5x30mm Hip Dome G7 Acetabular Low Profile - [id number] Implanted:Qty: 1 on 10/18/2021 by Dez Sykes MD at [facility] Left: Hip [employer] [id number] 03/28/2031 [id number] / / [id number] Screw Bone 6.5x15mm Acetabular G7 Low Profile Dome - [id number] Implanted:Qty: 1 on 10/18/2021 by Dez Sykes MD at [facility] Left: Hip [employer] [id number] 03/13/2031 [id number] / / [id number] Screw Bone 6.5x15mm Acetabular G7 Low Profile Dome - [id number] Implanted:Qty: 1 on 10/18/2021 by Dez Sykes MD at [facility] Left: Hip [employer] [id number] 03/13/[id number] / / [id number] Acetabular Liner 46mm Component Dual Mobility G7 - [id number] Implanted:Qty: 1 on 10/18/2021 by Dez Sykes MD at [facility] Left: Hip JAZ / DIV OF [employer] [id number] 07/30/2031 [id number] / / [id number] Hip Stem Sz 7 Actis Duofix Cementless Std Collar - [id number] Implanted:Qty: 1 on 10/18/2021 by Dez Sykes MD at [facility] Left: Hip JNJ [facility] [id number] 08/27/2031 [id number] / / [id number] Procedures Procedure Name Priority Date/Time Associated Diagnosis Comments BASIC METABOLIC PANEL Routine 10/19/2021 8:46 AM EST HEMOGLOBIN A1C Routine 10/15/2021 12:51 PM EST DM (diabetes mellitus) from Last 3 Months or Most Recently Relevant to Health Maintenance Results * (ABNORMAL) Basic metabolic panel (10/19/2021 8:46 AM EST) SODIUM 135(L) 136 - 145 mmol/L [facility] POTASSIUM 5.1 3.4 - 5.1 mmol/L [facility] CHLORIDE 101 98 - 107 mmol/L [facility] CO2 22 22 - 31 mmol/L [facility] BUN 32(H) 6 - 23 mg/dL [facility] CREATININE 1.61(H) 0.50 - 1.20 mg/dL [facility] GLUCOSE 352(H) 70 - 100 mg/dL [facility] CALCIUM 8.4(L) 8.8 - 10.7 mg/dL [facility] EGFR 47(L) >59 mL/min/1. 73m2 [facility] Comment:Estimated glomerular filtration rate calculated using the CKD-EPI refit equation. ANION GAP 12 7 - 17 mmol/L [facility] Blood 10/19/2021 8:46 AM EST 10/19/2021 8:54 AM EST Dez Sykes MD LAB BLOOD ORDERABLES [facility] [address] [place] [address] * (ABNORMAL) Hemoglobin A1c (10/15/2021 12:51 PM EST) HEMOGLOBIN A1C 7.0(H) 4.3 - 5.8 % [facility] Blood 10/15/2021 12:5 1 PM EST 10/15/2021 12:56 PM EST Dez Sykes MD LAB BLOOD ORDERABLES Performing Organization Address [facility] Co de Phone Number [facility] [address] [place], [place] [phone] from Last 3 Months or Most Recently Relevant to Health Maintenance Abdoulaye Castanon Personal/Famil y Self [address] [place] [address] Abdoulaye Castanon Personal/Famil y Self [address] [place] [address] Abdoulaye Castanon Personal/Famil y Self [address] [place] [address] Abdoulaye Castanon Personal/Famil y Self [address] [place] [address] Advance Directives * Full Code (Latest Code Status on File) Date Activated Date Inactivated Comments 10/18/2021 7:59 PM Question Answer Comments Code Status Confirmed With: Patient Care Teams Coining Press Operator Relationship Specialty Start Date End Date Jose Dukes MD [address] [place] [address] [phone] PCP - General Internal Medicine 12/26/14 Keila Hodge MD, MPH [address] [place] [address], [address] [place] [address] [email or web address] Cardiology 10/15/21 Additional Source Comments The information contained in this document represents components of the legal health record. It is not the complete legal health record.[facility]
--- OUTSIDE RECORDS SUMMARY | 2024-11-17 12:55 | XMS_ITS | Clinical Summary ---
Author Organization [facility] Address [address] [place] [address] [address] [place] [address] Phone Care Team Providers Care Math Teacher Name Role Phone Rosanna Talbert MD Primary Care Provider [phone]- [phone] Allergies No known active allergies Medications zolpidem [...] Visit [facility] [address] [address] Martínez Townsend MD [address] [address] Health Maintenance Due Date Last [...] age to complete this topic Insurance MEDICARE [facility] MEDICARE [facility] Care Teams Math Teacher Relationship Specialty Start Date End Date Rosanna Talbert MD [address] [place] [address] PCP - General Internal Medicine 06/29/24
--- OUTSIDE RECORDS SUMMARY | 2024-11-17 12:55 | XMS_ITS | Encounter Summary ---
Author Organization [facility] Address [phone] [facility] [place] [address] Care Team Providers Care Community Integration Specialist Name Role Phone Jose Dukes MD Primary Care Provider Keila Hodge MD, MPH Unavailable + [phone] Encounter Details Date Type Department Care Team (Late st Contact Info) Description 10/18/2021 Procedure Pass [facility] [address] [place] [address] Social History Tobacco Use Types Packs/Day Years [...] on filedocumented in this encounter Care Teams Community Integration Specialist Relationship Specialty Start Date End Date Jose Dukes MD [address] [place] [address] PCP - General Internal Medicine 12/26/14 Keila Hodge MD, MPH [address] [place] [address], [address] [place] [address] Cardiology 1/18/22 documented as of this encounter Additional Source Comments The information contained in this document represents components of the legal health record. It is not the complete legal health record.[facility]
--- OUTSIDE RECORDS SUMMARY | 2024-11-17 12:55 | XMS_ITS | Encounter Summary ---
Author Organization [facility] Address [phone] [facility] [employer] [place] [address] Care Team Providers Care Semiconductor Equipment Technician Name Role Phone Jose Dukes MD Primary Care Provider Keila Hodge MD, MPH Unavailable + [phone] Encounter Details Date Type Department Care Team (Late st Contact Info) Description 10/23/2021 Procedure Pass [facility] [address] [place] [address] Social History Tobacco Use Types Packs/Day Years [...] on filedocumented in this encounter Care Teams Semiconductor Equipment Technician Relationship Specialty Start Date End Date Jose Dukes MD [address] [place] [address] PCP - General Internal Medicine 12/26/14 Keila Hodge MD, MPH [address] [place] [address], [address] [place] [address] Cardiology 1/18/22 documented as of this encounter Additional Source Comments The information contained in this document represents components of the legal health record. It is not the complete legal health record.[facility]
== END 2024-11-17 11:33 | disposition home or self-care (01) ==
LOC: HO.HMGCX 11:32
PROVIDERS: Visit Provider Internal Medicine Rheumatology
DX: M07.60 Enteropathic arthropathies, unspecified site (principal)
CPT/HCPCS: 36415; 73130; 80076

== ENCOUNTER → 2024-11-17 11:36 | Outpatient (BNV) | payer MEDICARE, SELFPAY | PROVIDERS: Visit Provider Radiology Diagnostic Radiology | DX: M19.041 Primary osteoarthritis, right hand (principal); M19.042 Primary osteoarthritis, left hand | CPT/HCPCS: 73130 ==

== ENCOUNTER 2025-02-16 08:00 | Outpatient (AMB) | payer MEDICARE, SELFPAY ==
--- NOTE | 2025-02-16 08:00 | A.OFFVIS_ITS ---
Vital Signs 02/16/25 08:03 Height 5 ft 4 in Weight 175 lb 11.335 oz BMI 30.2 BP 110/76 Blood Pressure Location Rt brachial Position Sitting Pulse 87 Pulse Source Pulse Oximeter Pulse Oximetry (%) 97 Oxygen Delivery Method Room Air Intake Visit Reasons: 3 Months Intake Note: Pt present today for Enteropathy arthritis follow up. Accompanied by: Self / Same As Patient Allergies No Known Allergies Allergy (Verified 11/17/24 08:46) HPI HPI 3 Months: Details: He is doing well. No recent infections. He has back pain when he gets up from seated position from the toilet and rotates. He is having difficulty in cleaning himself when it occurs. Self-limited after walking. PFSH Family History Mother Breast cancer Social History Alcohol intake: current Alcohol intake frequency: holidays/special occasions only Alcohol type: beer Patient Tobacco Use Status: Never used Tobacco Physical Exam Vital Signs: Last Vital Signs Pulse 87 02/16/25 08:03 Pulse Ox 97 02/16/25 08:03 Oxygen Delivery Method Room Air 02/16/25 08:03 BMI result Body Mass Index 30.2 Const Other: General: Comfortable CVS: RRR Respiratory: clear to auscultation bilaterally. Good respiratory effort Skin: No lesions seen MSK: No triggering observed. No synovitis. 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 Shoulder abduction 160 degrees with good internal and external rotation. He is unable to externally rotate his hips fully. Knee flexion is 90 degrees bilateral. No ankle ten derness or MTP tenderness. He has localized tenderness to right upper flank region. 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 AST mildly elevated October 2024. GI ERI Suarez aware of labs revealing mild transaminitis and we will follow up with patient He did not recommend further imaging as CT enterography revealed normal liver. I will be repeating liver enzymes this visit. Rheumatology history: He was on Humira for years for Crohn's disease prescribed by GI. Humira frequency was increased to weekly without improvement of inflammatory arthritis. Sulfasalazine added 07/2019-07/2020 d/c ineffective. He had a bad reaction on Imuran and may have had transaminitis. Ustekinumab 06/2020 to present ineffective for inflammatory arthritis and Crohn's disease. He also has scalp psoriasis. He did not tolerate Methotrexate 06/05/2021 SC injection but had improvement in chronic synovial thickening of MCPs on po MTX 12.5mg qw 07/04/2021 clinic visit then was lost to follow-up. Chronic uncontrolled inflammatory arthritis cause joint space narrowing of right 1st and 2nd MCPs. Code(s): M07.60 - Enteropathic arthropathies, unspecified site Category: Medical Plan: Continue infliximab 3 milligram/kilogram every 8 weeks Labs for disease and drug monitoring ordered GI follow-up Return to clinic in 3 months (2) Trigger finger of right thumb: Comment: Resolved with last cortisone injection 09/2024. Code(s): M65.311 - Trigger thumb, right thumb Category: Medical Plan: Monitor clinically (3) Crohn disease: Code(s): K50.90 - Crohn's disease, unspecified, without complications Category: Medical Qualifiers: Gastrointestinal tract location: small intestine Digestive disease complication type: unspecified complication Qualified Code(s): K50.019 - Crohn's disease of small intestine with unspecified complications Plan: See above (4) Transaminitis: Comment: CT enterography 07/2024 revealed normal liver. Code(s): R74.01 - Elevation of levels of liver transaminase levels Category: Medical Plan: Repeat liver function tests today (5) Back pain: Comment: Right mid back due to myofascial strain. We discussed conservative management. 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 technician (current) use of unspecified immunomodulators and immunosuppressants Complete Blood Count Auto Diff Today Z79.60 - termite control technician (current) use of unspecified immunomodulators and immunosuppressants C Reactive Protein Today Z79.899 - Other intermediate accountant (current) drug therapy Alanine Aminotransferase Today Z79.60 - [facility]DC (current) use of unspecified immunomodulators and immunosuppressants Creatinine Today Z79.60 - FDC (current) use of unspecified immunomodulators and immunosuppressants Erythrocyte Sedimentation Rate Today Z79.899 - Other intermediate accountant (current) drug therapy Coding Level of Care Code Est Pt Level 4 (00827) Complex EM visit Add On G2211 Diagnoses Enteropathic arthritis M07.60 Trigger finger of right thumb M65.311 Crohn's disease of small intestine with complication K50.019 Gastrointestinal tract location: small intestine Digestive disease complication type: unspecified complication Transaminitis R74.01 Back pain M54.9
--- OUTSIDE RECORDS SUMMARY | 2025-02-16 08:02 | XMS_ITS | Clinical Summary ---
Author Organization [facility] Address [address] [place] [address] [address] [place] [address] Phone Care Team Providers Care Account Officer Name Role Phone Rosanna Talbert MD Primary Care Provider [phone] Allergies No known active allergies Medications zolpidem [...] Active Problems Problem Noted Date Diagnosed Date Vitamin D deficiency, not otherwise specified Stage 3b chronic kidney disease 12/28/2023 Diabetes mellitus, not otherwise specified 12/27 Pulmonary embolism 12/24/2023 Crohn's disease 12/24/2023 Complex regional pain syndrome 12/24/2023 Type 2 diabetes mellitus wit h other diabetic kidney complication 12/24/2023 Dyslipidemia 12/24/2023 Hypertension 12/24/2023 Hyperthyroidism 12/24/2023 Obstructive sleep apnea syndrome 12/24/2023 Resolved Problems Problem Noted Date Diagnosed Date Resolved Date Carpal tunnel syndrome 12/24/202306/27 Hypertriglyceridemia 12/24/2023 024 Encounters Date Type Department Care Team Description 12/28/2024 Orders Only [facility] [address] [phone] Martínez Townsend MD Stage 3b chronic kidney disease (HCC); Type 2 diabetes mellitus with other diabetic kidney complication (HCC); Diabetes mellitus, not otherwise specified (HCC); Hypertension; Hyperthyroidism; Pulmonary embolism, not otherwise specified (HCC); Dyslipidemia; Obstructive sleep apnea syndrome from Last 3 Months Social History Tobacco Use Types Packs/Day Years [...] Care Team (Late st Contact Info) Description 02/27/2025 8:40 AM EDT Office Visit [facility] [address] [phone] Martínez Townsend MD [address] [phone] Health Maintenance Due Date Last Done Comments Pneumococcal Vaccine: 50+ Ye ars (1 of 2 - PCV) 1975 Colorectal Cancer Screening: Annual FOBT 2005 Colorectal Cancer Screening: Colonoscopy 2005 Colorectal Cancer Screening: Sigmoidoscopy 2005 Diabetes: Hemoglobin A1C 11/04/2023 Diabetes: Ophthalmology Exam 11/04/2023 Diabetes: Pedal Pulse Checked 11/04/2023 Diabetes: Sensory Foot Exam 11/04/2023 Diabetes: Visual Foot Exam 11/04/2023 Influenza Vaccine (Season Ended) 2025 Hepatitis B Vaccine Aged Out No longe r eligible based on patient's age to complete this topic Insurance Medicare [facility] Medicare [facility] Care Teams Account Officer Relationship Specialty Start Date End Date Rosanna Talbert MD [address] [place] [id number] PCP - General Internal Medicine 06/29/24
--- OUTSIDE RECORDS SUMMARY | 2025-02-16 08:02 | XMS_ITS | Data Portability ---
Author Organization [place] - [place] [facility] Surgeons [facility], [facility] Address [address] [place] [address] Care Team Providers Care Roller Pneumatic Name Role Phone [facility] Primary Care Provider Assessment No assessment recorded. Plan of Treatment Reminders Order Date Submit Date Provider Last Modified By Organization Details Last Modified Time Details Appointments RECHECK 15 2024 02:30P M Jacob brown PA-C Not available Not available Not available Lab None recorded . Referral None recorded . Procedures None recorded . Surgeries None recorded . Imaging XR, shoulder , 2 or more view - 221 RT shldr 4 vws 2024 025 cstamand [facility], [address] [facility] [address], [place], [address], 10/31/2024 13:14:23 Medication Orders None recorded . Patient TargetsNo targets recorded. Patient InstructionsNo instructions recorded. Reason for Referral None Reported. Results Created Date Observation Date Name Description Value Unit Range Abnormal Flag Note LastModifiedBy Organization Detail LastModifiedTime 10/20/19 25 10/20/2024 XR, shoul letha, 2 or more view http:/ [email or web address] ?Encry pted=s hAaTro YD8dLq bEUv6g %2BXZw aYqtaq 0bqfl% 2Fg9IQ a4ajBk vP9nXo QUaueC m3YtLR FvZlgJ JJ8mAn HZtai3 [id number] AC0Kqb 3WHVqC jKiQtr MwF INTERFACE [facility] [address], [place], [address], 10/20/2024 09:14:28 10/20/19 25 10/20/2024 XR, shoul letha, 2 or more view [email or web address] ?Encry pted=s Kathryn YD8dLq bEUv6g %2BXZw aYqtaq 0bqfl% 2Fg9IQ a4ajBk vP9nXo QUaueC m3YtLR FvZlgJ JJ8mAn HZtai3 3j1181 AC0Kqb 3WHVqC jKiQtr MwF INTERFACE [facility] [address], [place], [address], 10/20/2024 09:14:30 Result Notes None recorded. Problems Name Problem SNOMED Code Status Onset Date Resolution Date Notes Provider Name and Address Organization Details Recorded Time Pain of right shoulder joint 7780765176173 9100 Active 2024 FIDENCIO OSEI [facility] 09:04:30 Osteoarthri tis of right glenohumera l joint 5586570095824 101 Active 2024 Jacob brown PA-C [address] [facility], [place], [address], [facility] 09:02:24 Problem Notes None recorded. Procedures Surgical History Date Name Laterality Status Provider Name and Address Organization Details Recorded Time 5 Sports Shoulder completed Jacob Domínguez PA-C [address] [facility], [place], [address], [facility] 01/26/2025 09:02:12 5 PM Shoulder Kenalog 2cc Injection Unilateral completed Jefferson Seo MD [address], [place], [address], [facility] 10/20/2024 09:29:42 Imaging Results Imaging Date Name Status LastModified by Organiz ation Details LastModified Time 10/20/2024 XR, shoulder, 2 or more view completed INTERFACE [facility] [address], [place], [address], 10/20/2024 09:14:28 10/20/2024 XR, shoulder, 2 or more view completed [facility] [address], [place], [address], 10/20/2024 09:14:30 Procedure Notes None recorded. Medical Equipment None Reported. Allergies No known drug allergies Medications Name Sig Start Date Stop Date Status Note LastModified by Organization Details LastModified Time diphenoxyla te-atropine 2.5 mg-0.025 mg tablet TAKE 1 TABLET BY MOUTH FOUR TIMES DAILY FOR 14 DAYS NEEDED FOR LOOSE STOOLS active Not Available Not Available No t Available valsartan 80 mg tablet active Not Available Not Available Not Available Remicade 100 mg intravenous solution Inject by intraveno us route. active Not Available Not Available No t Available doxycycline monohydrate 50 mg capsule TAKE 1 CAPSULE BY MOUTH TWICE DAILY active Not Available Not Available No t Available ofloxacin 0.3 % ear drops INSTILL 10 DROPS TO AFFECTED EAR DAILY active Not Available Not Available No t Available pseudoephed rine-guaife nesin ER 80-700 mg tablet,exte nded release DO NOT DRIVE WHILE ON THIS MEDICATIO N, 840.4 2014 active Statu s: 'Curr ent'; Not Available Not Available Not Available zolpidem 5 mg tablet active Not Available Not Available No t Available Novolog U-100 Insulin aspart 100 unit/mL subcutaneou s solution active Not Available Not Available N ot Available Microlet Lancet USE TO TEST BLOOD SUGAR TWICE DAILY ON INSULIN PUMP active Not Available Not Available No t Available rosuvastati n 10 mg tablet TAKE 1 TABLET DAILY active Not Available Not Available No t Available fluocinolon e acetonide oil 0.01 % ear drops active Not Available Not Available No t Available Stelara 90 mg/mL subcutaneou s syringe 01/26 completed Not Available Not Available Not Available Eliquis 5 mg tablet TAKE 1 TABLET BY MOUTH TWICE DAILY FOR 10 DAYS active Not Available Not Available No t Available Jardiance 25 mg tablet TAKE 1 TABLET EVERY MORNING. HIGHER DOSE KEEP UP WITH FLUIDS. active Not Available Not Available No t Available Fiasp U-100 Insulin 100 unit/mL subcutaneou s solution active Not Available Not Available N ot Available Omnipod Dash Pods (Gen 4) subcutaneou s cartridge active Not Available Not Available Not Available Vitals Date Recorded Body height Body mass index (BMI) Body weight Provider Name and Address Organization Details Last Updated DateTime 10/20/2024 162.56 cm 24 kg/m2 87580.93 g FIDENCIO OSEI [facility] 10/20/2024 09:04:23 Date Recorded Body height Body mass index (BMI) Body weight Provider Name and Address Organization Details Last Updated DateTime 01/26/2025 162.56 cm 24 kg/m2 70461.93 g Carmen Spencer [facility] 01/26/2025 08:56:26 Social History None recorded. Functional Status None recorded. Mental Status None recorded. Family History Nothing Reported. Medical History Condition Response Coronary Artery Disease N Anxiety/Depression N Emphysema N COPD N Pacemaker N Vascular Disease N Heart Trouble N Gastrointestinal Disease N Autoimmune disease N Inflammatory Joint disease N Orthotics N Arthritis Y Blood Clot N Acid Reflux (GERD) N Cancer N Stroke N Circulation Problems N Rheumatoid Arthritis N Arrhythmia N Headaches N Fibromyalgia N Allergies/Hayfever N Breathing or lung disorders N Nerve Disorders N Thyroid Problems N Kidney/Bladder Problems N Anemia N Heart Attack (NM) N Cholesterol Y Diabetes Y Bleeding Disorder N Seizures/Epilepsy N AIDS/HIV N Congestive Heart Failure (CHF) N Asthma N Peripheral Vascular Disease N Sleep Apnea N Hepatitis N Heart Disease N Pulmonary Embolism N Hypertension N Osteoporosis N Past Encounters Encounter ID Performer Location Encounter Start Date Encounter Closed Date Diagnosis/Indication Diagnosis SNOMED-CT Code Diagnosis ICD10 Code Diagnosis Note [id number] MD SANJU Arenas [address] floor [address] [place] [address] 10/20/2024 08:47:16 10/31/2024 13:14:23 Pain of right shoulder joint [id number] 4793396 M25.[id number] [place] [address] 01/26/2025 08:49:48 02/08/2025 16:19:19 Osteoarthritis of right glenohumeral joint 0536516711 234556 M19.011 Health Concerns Section Related Observation LastModified by Organization Detai ls LastModified Time None Recorded Concern Status LastModified by Organization Details LastModified Time None Recorded Advance Directives Directive None Recorded Payers Encounter Date Sequence Insurance Name Policy Number Policy Oconnor Covered Member ID Oconnor Member ID Guarantor Name 10/20/2024 2 [place] [id number] Abdoulaye Castanon [id number] Abdoulaye Castanon 10/20/2024 1 [place] [employer] Abdoulaye Castanon [id number] Abdoulaye Castanon 01/26/2025 2 [place] [id number] Abdoulaye Castanon [id number] Abdoulaye Castanon 01/26/2025 1 [place] [employer] [place]MENT [place] Abdoulaye Castanon [id number] Abdoulaye Castanon Notes Date Note Type Note Provider Name and Address Organization Details Recorded Time 10/20/2024 text/html HPI: Patient pre sents with complaints of {{right* left}} lateral brachial pain, worse in overhead positions, symptoms present now for several weeks. Has attempted activity modification, NSAIDS, but has not yet had formal therapy, nor cortisone injection. Denies trauma, no past history of shoulder pathology, has been attending physical therapy with some improvement. Status post right shoulder arthroscopy with myself 2014 that included SA D DCE with arthroscopic rotator cuff repair. PFMSH and ROS has been reviewed, updated, and is located in the patient? s chart. PHYSICAL EXAMINATION: The patient is well appearing and in no apparent distress. Alert and oriented x 3. Gait is symmetric. {{right* left}} shoulder exam: Elevates to 160 degrees, externally rotates 30, internal rotates to L1. Patient exhibits bursal irritability, with positive impingment test, moderate AC joint irritability. AC joint pain exasperated by both ballottement and cross bodied adduction. Good strength fires the cuff. Supraspinatus strength 4+ out of 5 infraspinatus strength 4+ out of 5 both limited by pain. Subscapularis 5 or 5. Negative speed's. Positive [place]'sDeltoid intact. Axillary nerve intact. No instability. {{right left*}} shoulder ROM full, 5/5 strength including rotator cuff and periscapular musculature. Good muscle bulk and strength without atrophy. No evidence of instability of the shoulder. Negative impingement signs. Negative AC joint tenderness. HEENT is unremarkable without carotid bruits or JVD.Heart regular rate and rhythm without murmurs rubs or gallopsAbdomen soft nontender nondistended positive bowel soundsLungs are clear bilaterally without rales rhonchi or wheezes. No erythema, no redness, no warmth. Peripheral, vascular, lymphatic examination, skin, neurological, coordination, reflexes, sensation are within normal limits. X-RAY REPORT: X-rays were ordered, obtained and reviewed today at [facility]. Four views of the {{right* left}}shoulde r demonstrate type I acromion, AC joint status post resection, maintained., Glenohumeral joint evidence of glenohumeral joint osteoarthropathy with osteophyte formation and decreased glenohumeral joint spacing.IMPRESSION: {{right* left}} Shoulder glenohumeral joint osteoarthropathy. PLAN: Discussed nature of symptoms. Recommended rest, ice, activity modification. Recommended and performed shoulder glenohumeral joint injection. After meticulous sterile preparation {{right* left}}shoulde r glenohumeral joint injected with 4ccs of Marcaine 40mgs of Kenalog. Postinjection precautions reviewed. Recommendation is for referal to physical therapy and plan to recheck in 3 to 4 months as necessary based upon symptoms. Jefferson Seo MD [address] [place] [address] [address], [place], [address], [facility] [place] [facility] 10/20/2024 09:30:05 01/26/2025 text/html I am seeing the patient today under the supervision of Dr. Mcintosh who was available but who did not see the patient. REASON FOR VISIT Patient comes to the office with known glenohumeral joint arthritis of the {{left Right* Bilatera l}} shoulder. The patient has done well with conservative management for their shoulder pain. Recently reports increasing discomfort over the past several weeks without injury. Pain is generalized about the shoulder and discomfort is noted at night. PAST MEDICAL/SURGICAL HISTORY Current medications per intake sheet. PHYSICAL FINDINGS The patient is well appearing, in no apparent distress, alert and oriented to person, place and time. Gait is symmetric. No significant swelling, warmth or erythema about either shoulder. There is mild tenderness to palpation about the shoulder. Active range of motion of the shoulder is {{full restricted*}} with moderate pain through mid range manipulations. 4/5 strength of the shoulder. Good stability of the shoulder. Peripheral, vascular, lymphatic examination, skin, neurologic coordination, reflexes, sensation are within normal limits. ASSESSMENT Right glenohumeral joint arthritis PLAN The patient has done well with conservative management in regards to the shoulder. Continued conservative management recommended. Moderating activities with the upper extremity recommended also. See procedure note. Follow up as needed. Jacob Domínguez PA-C [address] [facility] [address], [place], [address], [facility] [place] [facility] 01/26/2025 09:02:37
[2025-02-16 08:03] VITALS: BP 110/76; PULSE 87; O2SAT 97; BMI 30.2
== END 2025-02-16 08:32 | disposition home or self-care (01) ==
PROVIDERS: PCP Internal Medicine; Visit Provider Internal Medicine Rheumatology
DX: M07.60 Enteropathic arthropathies, unspecified site (principal); M65.311 Trigger thumb, right thumb; K50.019 Crohn's disease of small intestine with unspecified complications; R74.01 Elevation of levels of liver transaminase levels; M54.9 Dorsalgia, unspecified
CPT/HCPCS: 99214; G2211

== ENCOUNTER → 2025-02-16 08:00 | Outpatient (BNVA) | payer MEDICARE, SELFPAY | PROVIDERS: PCP Internal Medicine; Visit Provider Internal Medicine Rheumatology | DX: M07.60 Enteropathic arthropathies, unspecified site (principal); M65.311 Trigger thumb, right thumb; M54.9 Dorsalgia, unspecified; R74.01 Elevation of levels of liver transaminase levels; K50.019 Crohn's disease of small intestine with unspecified complications | CPT/HCPCS: 99212 ==

== ENCOUNTER 2025-04-04 11:50 | Outpatient (REF) | payer MEDICARE, SELFPAY ==
--- OUTSIDE RECORDS SUMMARY | 2025-04-04 12:52 | XMS_ITS | Data Portability ---
Author Organization [place] - [facility], [facility] Address [address] [place] [address] Care Team Providers Care Director College Name Role Phone [facility] Primary Care Provider Assessment No assessment recorded. [...] shoulder , 2 or more view - rm 221 RT shldr 4 vws 2024 025 cstamand [employer] [facility], [address] [facility], [facility] [address], [place], [address], 10/31/2024 13:14:23 Medication Orders None recorded . [...] a4ajBk vP9nXo QUaueC m3YtLR FvZlgJ JJ8mAn HZtai3 [id number] AC0Kqb 3WHVqC jKiQtr MwF INTERFACE [facility] [address], [place], [address], 10/20/2024 09:14:28 10/20/19 25 10/20/2024 XR, shoul letha, 2 or more view [email or web address] ?Encry pted=s hAaTro YD8dLq bEUv6g %2BXZw aYqtaq 0bqfl% 2Fg9IQ a4ajBk vP9nXo QUaueC m3YtLR FvZlgJ JJ8mAn HZtai3 1s4381 AC0Kqb 3WHVqC jKiQtr MwF INTERFACE [facility] [address], [place], [address], 10/20/2024 09:14:30 Result Notes Documentation Provider Name and Address Organization Details Recorded Time Xr, Shoulder, 2 Or More View : [email or web address] Encrypted=daAhWfqQC8oIzfQ Uv6g%4YARqaLlgmr1vvur%2Fg 4WUm0pyWolX9nCyBDaajQo6Vy APBhWzhTTY9dUmSJsxp61g298 2YT6Lgz0GNExKxOpYmwFnN Not Available [facility] 10/20/2024 09:14: 29 Xr, Shoulder, 2 Or More View : [email or web address] Encrypted=wsHrQriTG7eBfsC Uv6g%2ZTKmqAnkin9sifc%2Fg 4UBg2lpAbiM8kZlDWkzgSj9Yj PYEeYolFCW2cBbBWiwu19i010 9SJ1Bzo2IQExJrVaTgpBmJ Not Available [facility] 10/20/2024 09:14: 31 Problems Name Problem SNOMED Code Status Onset Date Resolution Date Notes Provider Name and Address Organization Details Recorded Time Pain of right shoulder joint 3021881392176 9100 Active 2024 FIDENCIO samuel [place] [facility] [place] [facility] 09:04:30 Osteoarthri tis of right glenohumera l joint 9651525675711 101 Active 2024 Jacob brown PA-C [address] [facility][note 2], [place], [address], [facility] 09:02:24 Problem Notes None recorded. Procedures Surgical History Date Name Laterality Status Provider Name and Address Organization Details Recorded Time 5 Sports Shoulder completed Jacob Domínguez PA-C [address], [place], [address], [facility] 01/26/2025 09:02:12 5 PM Shoulder Kenalog 2cc Injection Unilateral completed Jefferson Seo MD [address], [place], [address], [facility] 10/20/2024 09:29:42 Imaging Results None recorded. Procedure Notes None recorded. Medical Equipment None [...] Updated DateTime 10/20/2024 162.56 cm 24 kg/m2 63996.93 g FIDENCIO OSEI [facility] 10/20/2024 09:04:23 Date Recorded Body height Body mass index (BMI) Body weight Provider Name and Address Organization Details Last Updated DateTime 01/26/2025 162.56 cm 24 kg/m2 45516.93 g Carmen Spencer [facility] 01/26/2025 08:56:26 Social History None recorded. Functional [...] Kidney/Bladder Problems N Anemia N Heart Attack (AL) N Cholesterol Y Diabetes Y Bleeding Disorder N Seizures/Epilepsy N AIDS/HIV N Congestive Heart Failure (CHF) N Asthma N Peripheral Vascular Disease N Sleep Apnea N Hepatitis N Heart Disease N Pulmonary Embolism N Hypertension N Osteoporosis N Past Encounters Encounter ID Performer Location Encounter Start Date Encounter Closed Date Diagnosis/Indication Diagnosis SNOMED-CT Code Diagnosis ICD10 Code Diagnosis Note [id number] MD SANJU Arenas 2nd floor [address] [place] [address] 10/20/2024 08:47:16 10/31/2024 13:14:23 Pain of right shoulder joint [id number] 0926112 M25.839 [id number] [facility] [address] [place] [address] 01/26/2025 08:49:48 02/08/2025 16:19:19 Osteoarthritis of right glenohumeral joint [id number] 707588 M19.011 Health Concerns Section Related Observation LastModified by Organization Detai ls LastModified Time None Recorded Concern Status LastModified by Organization Details LastModified Time None Recorded Advance Directives Directive None Recorded Payers Insurance Date Sequence Insurance Name Policy Number Policy Oconnor Covered Member ID Oconnor Member ID Guarantor Name 02/08/2025 2 [place] [id number] Abdoulaye Castanon [id number] Abdoulaye Castanon 01/26/2025 1 [place] [employer] Abdoulaye Castanon [id number] Abdoulaye Castanon Notes Date Note Type Note Provider Name and Address Organization Details Recorded Time 10/20/2024 text/html HPI: Patient pre sents with complaints of right lateral brachial pain, worse in overhead positions, [...] reviewed, updated, and is located in the patient s chart. PHYSICAL EXAMINATION: The patient is well appearing and in no apparent distress. Alert and oriented x 3. Gait is symmetric. right shoulder exam: Elevates to 160 degrees, externally [...] Subscapularis 5 or 5. Negative speed's. Positive Austin'sDeltoid intact. Axillary nerve intact. No instability. left shoulder ROM full, 5/5 strength including rotator [...] were ordered, obtained and reviewed today at [facility]. Four views of the rightshoulder demonstrate type I acromion, AC joint status post resection, maintained., Glenohumeral joint evidence of glenohumeral joint osteoarthropathy with osteophyte formation and decreased glenohumeral joint spacing.IMPRESSION: right Shoulder glenohumeral joint osteoarthropathy. PLAN: Discussed nature of symptoms. Recommended rest, ice, activity modification. Recommended and performed shoulder glenohumeral joint injection. After meticulous sterile preparation rightshoulder glenohumeral joint injected with 4ccs of Marcaine 40mgs of Kenalog. Postinjection precautions reviewed. Recommendation is for referal to physical therapy and plan to recheck in 3 to 4 months as necessary based upon symptoms. Jefferson Seo MD [address] [place] [address] [address], [place], [address], [facility] [place] [facility] 10/20/2024 09:30:05 01/26/2025 text/html I am seeing the patient today under the supervision of Dr. Mcintosh who was available but who did not see the patient. REASON FOR VISIT Patient comes to the office with known glenohumeral joint arthritis of the Right shoulder. The patient has done well with [...] range of motion of the shoulder is restricted with moderate pain through mid range manipulations. [...] up as needed. Jacob Domínguez PA-C [address] [facility] [address], [place], [address], [place] [facility] [place] [facility] 01/26/2025 09:02:37
--- OUTSIDE RECORDS SUMMARY | 2025-04-04 12:52 | XMS_ITS | Clinical Summary ---
Author Organization [facility] Address [address] [place] [address] [address] [place] [address] Phone Care Team Providers Care Climatology Professor Name Role Phone Rosanna Talbert MD Primary Care Provider [phone] Allergies No known active allergies Medications zolpidem [...] mouth 1 (one) time each day Active inFLIXimab (REMICADE) 100 MG injection Infuse into a venous catheter Active insulin lispro (HumaLOG) 100 UNIT/ML injection Insulin pump Basal rate 12am-6am- 1.65 units/hour 6am-12pm- 1.7 units/hour 12pm-6pm- 2 units/hour 6pm-12pm- 2.5 units/hour Active cholecalciferol (VITAMIN D-3) 25 MCG (1000 UT) tablet Take 1 tablet (1,000 Units total) by mouth 1 (one) time each day 90 tablet 3 5 02/28/20 26 Active Active Problems Problem Noted Date Diagnosed [...] Encounters Date Type Department Care Team Description 02/27/2025 8:40 AM EDT [facility] Visit [facility] [address] [address] Martínez Townsend MD Stage 3b chronic kidney disease (HCC) (Primary Dx); Hypertension; Dyslipidemia; Diabetes mellitus, not otherwise specified (HCC); Crohn's disease, not otherwise specified (HCC); Complex regional pain syndrome; Vitamin D deficiency, not otherwise specified from Last 3 Months Social History Tobacco [...] Sign Reading Time Taken Comments Blood Pressure 106/72 02/27/2025 8:48 AM EDT Pulse 96 02/27/2025 8:48 AM EDT Temperature - - Respiratory Rate - - Oxygen Saturation 97% 06/29/2024 8:44 AM EDT Inhaled Oxygen Concentration - - Weight 80.9 kg (178 lb 6.4 oz) 02/27/2025 8:48 A M EDT Height 160 cm (5' 3 ) 06/29/2024 8:44 AM EDT Body Mass Index 31.6 06/29/2024 8:44 AM EDT Plan of Treatment Upcoming Encounters Date Type Department Care Team (Late st Contact Info) Description 08/28/2025 8:20 AM EST Office Visit [facility] [address] [address] Martínez Townsend MD [address] [address] Health Maintenance Due Date Last Done Comments Pneumococcal Vaccine: 50+ Ye ars (1 of 2 - PCV) 1975 Colorectal Cancer Screening: Annual FOBT 2005 Colorectal Cancer Screening: Colonoscopy 2005 Colorectal Cancer Screening: Sigmoidoscopy 2005 Diabetes: Hemoglobin A1C 11/04/2023 Diabetes: Ophthalmology Exam 11/04/2023 Diabetes: Pedal Pulse Checked 11/04/2023 Diabetes: Sensory Foot Exam 11/04/2023 Diabetes: Visual Foot Exam 11/04/2023 Influenza Vaccine (#1) 2025 Hepatitis B Vaccine Aged Out No longe r eligible based on patient's age to complete this topic Procedures Procedure Name Priority Date/Time Associated Diagnosis Comments PROTEIN / CREATININE RATIO, URINE Routine 02/17/2025 1:29 PM EDT Stage 3b chronic kidney disease (HCC) Type 2 diabetes mellitus with other diabetic kidney complication (HCC) Diabetes mellitus, not otherwise specified (HCC) Hypertension Hyperthyroidism Pulmonary embolism, not otherwise specified (HCC) Dyslipidemia Obstructive sleep apnea syndrome CBC AND DIFFERENTIAL Routine 02/17/2025 1:29 PM EDT Stage 3b chronic kidney disease (HCC) Type 2 diabetes mellitus with other diabetic kidney complication (HCC) Diabetes mellitus, not otherwise specified (HCC) Hypertension Hyperthyroidism Pulmonary embolism, not otherwise specified (HCC) Dyslipidemia Obstructive sleep apnea syndrome VITAMIN D 25 HYDROXY Routine 02/17/2025 1:29 PM EDT Stage 3b chronic kidney disease (HCC) Type 2 diabetes mellitus with other diabetic kidney complication (HCC) Diabetes mellitus, not otherwise specified (HCC) Hypertension Hyperthyroidism Pulmonary embolism, not otherwise specified (HCC) Dyslipidemia Obstructive sleep apnea syndrome PTH, INTACT Routine 02/17/2025 1:29 PM EDT Stage 3b chronic kidney disease (HCC) Type 2 diabetes mellitus with other diabetic kidney complication (HCC) Diabetes mellitus, not otherwise specified (HCC) Hypertension Hyperthyroidism Pulmonary embolism, not otherwise specified (HCC) Dyslipidemia Obstructive sleep apnea syndrome PHOSPHATE ( PHOSPHORUS) Routine 02/17/2025 1:29 PM EDT Stage 3b chronic kidney disease (HCC) Type 2 diabetes mellitus with other diabetic kidney complication (HCC) Diabetes mellitus, not otherwise specified (HCC) Hypertension Hyperthyroidism Pulmonary embolism, not otherwise specified (HCC) Dyslipidemia Obstructive sleep apnea syndrome MAGNESIUM Routine 02/17/2025 1:29 PM EDT Stage 3b chronic kidney disease (HCC) Type 2 diabetes mellitus with other diabetic kidney complication (HCC) Diabetes mellitus, not otherwise specified (HCC) Hypertension Hyperthyroidism Pulmonary embolism, not otherwise specified (HCC) Dyslipidemia Obstructive sleep apnea syndrome URIC ACID Routine 02/17/2025 1:29 PM EDT Stage 3b chronic kidney disease (HCC) Type 2 diabetes mellitus with other diabetic kidney complication (HCC) Diabetes mellitus, not otherwise specified (HCC) Hypertension Hyperthyroidism Pulmonary embolism, not otherwise specified (HCC) Dyslipidemia Obstructive sleep apnea syndrome COMPREHENSIVE METABOLIC PANEL Routine 02/17/2025 1:29 PM EDT Stage 3b chronic kidney disease (HCC) Type 2 diabetes mellitus with other diabetic kidney complication (HCC) Diabetes mellitus, not otherwise specified (HCC) Hypertension Hyperthyroidism Pulmonary embolism, not otherwise specified (HCC) Dyslipidemia Obstructive sleep apnea syndrome from Last 3 Months Results * (ABNORMAL) Protein, Total, Random Urine w/Creatinine (Protein/Creat Ratio) (02/17/2025 1:29 PM EDT) Creatinine, Ur 87.9 Not Estab. mg/dL [facility] Protein, Ur 26.8 Not Estab. mg/dL [facility] Urine Protein/Creati nine Ratio 305(H) 0 - 200 mg/g creat [facility] Urine specimen (specimen) Urine specimen obtained by clean catch procedure / Unknown 02/17/2025 1:29 PM EDT 02/17/2025 Martínez Townsend MD LAB URINE ORDERABLES Final Re sult [facility] [address] [place] [address] * (ABNORMAL) Vitamin D 25 Hydroxy (02/17/2025 1:29 PM EDT) Vitamin D, 25-OH, Total 22.4(L) 30.0 - 100.0 ng/mL [facility] Comment: Vitamin D deficiency has been defined by the [place] of Medicine and an Endocrine Society practice guideline as a level of serum 25-OH vitamin D less than 20 ng/mL (1,2). The Endocrine Society went on to further define vitamin D insufficiency as a level between 21 and 29 ng/mL (2). 1. IOM ([place] of [employer]). 2010. Dietary reference intakes for calcium and D. [place]: The National Academies Press. 2. Elis MF, Mahin [place], Corey MASTERS, et al. Evaluation, treatment, and prevention of vitamin D deficiency: an Endocrine Society clinical practice guideline. JCEM. 2010; 96(7):1911-30. Blood specimen (specimen) Venous blood / Unknown 02/17/2025 1:29 PM EDT 02/17/2025 us Martínez Townsend MD LAB BLOOD ORDERABLES Final Re sult [facility] [address] [place] [address] * (ABNORMAL) CBC and Differential (02/17/2025 1:29 PM EDT) WBC 10.3 3.4 - 10.8 x10E3/uL [facility] RBC 4.36 4.14 - 5.80 x10E6/uL [facility] Hemoglobin 14.5 13.0 - 17.7 g/dL [facility] Hematocrit 44.0 37.5 - 51.0 % [facility] MCV 101(H) 79 - 97 fL [facility] MCH 33.3(H) 26.6 - 33.0 pg [facility] MCHC 33.0 31.5 - 35.7 g/dL [facility] RDW 13.1 11.6 - 15.4 % [facility] Platelets 190 150 - 450 x10E3/uL [facility] Neutrophils Relative 66 Not Estab. % [facility] Lymphocytes Relative 25 Not Estab. % [facility] Monocytes 7 Not Estab. % [facility] Eosinophils Relative 2 Not Estab. % [facility] Basophils Relative 0 Not Estab. % [facility] Neutrophils Absolute 6.8 1.4 - 7.0 x10E3/uL [facility] Lymphocytes Absolute 2.5 0.7 - 3.1 x10E3/uL [facility] Monocytes Absolute 0.7 0.1 - 0.9 x10E3/uL [facility] Eosinophils Absolute 0.2 0.0 - 0.4 x10E3/uL [facility] Basophils Absolute 0.0 0.0 - 0.2 x10E3/uL [facility] Immature Granulocytes 0 Not Estab. % [facility] Immature Grans (Absolute) 0.0 0.0 - 0.1 x10E3/uL [facility] Blood specimen (specimen) Venous blood / Unknown 02/17/2025 1:29 PM EDT 02/17/2025 us Martínez Townsend MD LAB BLOOD ORDERABLES Final Re sult [facility] [address] [place] [address] * Uric Acid (02/17/2025 1:29 PM EDT) Uric Acid 6.0 3.8 - 8.4 mg/dL [facility] Comment:Therapeutic target f or gout patients: <6.0 Blood specimen (specimen) Venous blood / Unknown 02/17/2025 1:29 PM EDT 02/17/2025 us Martínez Townsend MD LAB BLOOD ORDERABLES Final Re sult [facility] [address] [place] [address] * Phosphorus (02/17/2025 1:29 PM EDT) Phosphorus 3.5 2.8 - 4.1 mg/dL [facility] Blood specimen (specimen) Venous blood / Unknown 02/17/2025 1:29 PM EDT 02/17/2025 Martínez Townsend MD LAB BLOOD ORDERABLES Final Re sult [facility] [address] [place] [address] * PTH, Intact (02/17/2025 1:29 PM EDT) Pathologist [facility] PTH 29 15 - 65 pg/mL [facility] Blood specimen (specimen) Venous blood / Unknown 02/17/2025 1:29 PM EDT 02/17/2025 Martínez Townsend MD LAB BLOOD ORDERABLES Final Re sult Performing Organization Address City/[facility]/ZIP Co de Phone Number [facility] [address] [place] [address] * Magnesium (02/17/2025 1:29 PM EDT) Pathologist [facility] Magnesium 1.6 1.6 - 2.3 mg/dL [facility] Blood specimen (specimen) Venous blood / Unknown 02/17/2025 1:29 PM EDT 02/17/2025 Martínez Townsend MD LAB BLOOD ORDERABLES Final Re sult Performing Organization Address City/[facility]/ZIP Co de Phone Number [facility] [place] [address] [place] [address] * (ABNORMAL) Comprehensive Metabolic Panel (02/17/2025 1:29 PM EDT) Pathologist [facility] Glucose 209(H) 70 - 99 mg/dL [facility] BUN 24 8 - 27 mg/dL [facility] Creatinine 1.40(H) 0.76 - 1.27 mg/dL [facility] eGFR CKD-EPI CR 2020 55(L) >59 mL/min/1.7 3 [facility] BUN/Creatinine Ratio 17 10 - 24 [facility] Sodium 138 134 - 144 mmol/L [facility] Potassium 4.6 3.5 - 5.2 mmol/L [facility] Chloride 105 96 - 106 mmol/L [facility] Bicarbonate (CO2) 16(L) 20 - 29 mmol/L [facility] Calcium 9.2 8.6 - 10.2 mg/dL [facility] Total Protein 6.5 6.0 - 8.5 g/dL [facility] Albumin 4.1 3.9 - 4.9 g/dL [facility] Globulin 2.4 1.5 - 4.5 g/dL [facility] Total Bilirubin 0.4 0.0 - 1.2 mg/dL [facility] Alkaline Phosphatase 66 44 - 121 IU/L [facility] AST (SGOT) 30 0 - 40 IU/L [facility] ALT (SGPT) 27 0 - 44 IU/L [facility] Blood specimen (specimen) Venous blood / Unknown 02/17/2025 1:29 PM EDT 02/17/2025 us Martínez Townsend MD LAB BLOOD ORDERABLES Final Re sult [facility] [address] [place] [address] from Last 3 Months Insurance Medicare [facility] Medicare [facility] Care Teams Climatology Professor Relationship Specialty Start Date End Date Rosanna Talbert MD [address] [place] [address] PCP - General Internal Medicine 06/29/24
[2025-04-04 15:07] LABS: MANUAL DIFF FLAG NO
[2025-04-04 15:17] LABS: Hematocrit 41.5 % (42.0-52.0); Hemoglobin 14.4 g/dl (14.0-18.0); Imm Gran Abs Auto 0.06 X10*3/uL (0.00-0.03); Imm Gran Pct Auto 0.7 % (0.0-0.4); Lymphocytes Absolute Auto 2.6 X10*3/uL (1.2-4.9); Mean Corpuscular HGB Conc 34.7 g/dl (31.0-36.0); Mean Corpuscular Hemoglobin 32.7 pg (27.0-33.0); Mean Corpuscular Volume 94.1 fL (80.0-98.0); NRBC Abs Auto 0.000 X10*3/uL (0.0-0.012); NRBC Pct Auto 0.0 /100WBC (0.0-0.2); Platelet Count 222 X10*3/uL (160-400); Red Blood Count 4.41 X10*6/uL (4.60-5.80); White Blood Count 8.8 X10*3/uL (4.8-10.8)
[2025-04-04 15:33] LABS: Alanine Aminotransferase 51 U/L (0-40); Aspartate Amino Transferase 54 U/L (5-37); Estimated Glomerular Filt Rate 52
== END 2025-04-04 11:51 | disposition home or self-care (01) ==
LOC: HO.HKASLDS 11:50
PROVIDERS: Visit Provider Internal Medicine Rheumatology
DX: Z79.899 Other long term (current) drug therapy (principal); Z79.60 Long term (current) use of unspecified immunomodulators and immunosuppressants
CPT/HCPCS: 36415; 82565; 84450; 84460; 85025; 85652; 86140

== ENCOUNTER 2025-05-25 07:55 | Outpatient (AMB) | payer MEDICARE, SELFPAY ==
[2025-05-25 07:57] VITALS: BP 100/80; PULSE 96; O2SAT 96; BMI 30.5
--- NOTE | 2025-05-25 07:57 | A.OFFVIS_ITS ---
Vital Signs 05/25/25 07:57 Height 5 ft 4 in Weight 177 lb 7.554 oz BMI 30.5 BP 100/80 Blood Pressure Location Rt brachial Position Sitting Pulse 96 Pulse Source Pulse Oximeter Pulse Oximetry (%) 96 Oxygen Delivery Method Room Air Intake Visit Reasons: 3 months Intake Note: Pt present today for Enteropathy arthritis follow up. Accompanied by: Self / Same As Patient Allergies No Known Allergies Allergy (Verified 05/25/25 07:57) HPI HPI 3 months: Details: Feels well. No recent infection. Joints feel good. PFSH Family History Mother Breast cancer Social History Alcohol intake: current Alcohol intake frequency: holidays/special occasions only Alcohol type: beer Patient Tobacco Use Status: Never used Tobacco Physical Exam Vital Signs: Last Vital Signs Pulse 96 05/25/25 07:57 BP 100/80 05/25/25 07:57 Pulse Ox 96 05/25/25 07:57 Oxygen Delivery Method Room Air 05/25/25 07:57 BMI result Body Mass Index 30.5 Const Other: General: Comfortable CVS: RRR Respiratory: clear to auscultation bilaterally. Good respiratory effort Skin: No lesions seen MSK: No triggering observed. No synovitis. Shoulder abduction 170 degrees with good internal and external rotation. He is unable to externally rotate his hips fully. Knee flexion is 90 degrees bilateral. No ankle tenderness or MTP tenderness. 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 AST and ALT mildly elevated November 2024 - monitoring. GI PA Nickolas Briscoe is aware of labs revealing mild transaminitis. He did not recommend further imaging as CT enterography revealed normal liver 2023. Rheumatology history: He was on Humira for years for Crohn's disease prescribed by GI. Humira frequency was increased to weekly without improvement of inflammatory arthritis. Sulfasalazine added 07/2019-07/2020 d/c ineffective. He had a bad reaction on Imuran and may have had transaminitis. Ustekinumab 06/2020 to present ineffective for inflammatory arthritis and Crohn's disease. He also has scalp psoriasis. He did not tolerate Methotrexate 06/05/2021 SC injection but had improvement in chronic synovial thickening of MCPs on po MTX 12.5mg qw 07/04/2021 clinic visit then was lost to follow-up. Chronic uncontrolled inflammatory arthritis cause joint space narrowing of right 1st and 2nd MCPs. Code(s): M07.60 - Enteropathic arthropathies, unspecified site Category: Medical Plan: Continue infliximab 3 milligram/kilogram every 8 weeks Labs for disease and drug monitoring ordered GI follow-up Return to clinic in 3 months (2) Trigger finger of right thumb: Comment: Resolved with last cortisone injection 09/2024. Code(s): M65.311 - Trigger thumb, right thumb Category: Medical Plan: Monitor clinically (3) Crohn disease: Code(s): K50.90 - Crohn's disease, unspecified, without complications Category: Medical Qualifiers: Gastrointestinal tract location: small intestine Digestive disease complication type: unspecified complication Qualified Code(s): K50.019 - Crohn's disease of small intestine with unspecified complications Plan: See above (4) Transaminitis: Comment: CT enterography 07/2024 revealed normal liver. Code(s): R74.01 - Elevation of levels of liver transaminase levels Category: Medical Plan: Repeat liver function tests today Orders: Orders Complete Blood Count Auto Diff 1 Month Z79.899 - Other web content specialist (current) drug therapy Aspartate Amino Transferase 1 Month Z79.899 - Other web content specialist (current) drug therapy Creatinine 1 Month Z79.899 - Other skilled nursing (current) drug therapy C Reactive Protein 1 Month Z79.899 - Other skilled nursing (current) drug therapy Alanine Aminotransferase 1 Month Z79.899 - Other skilled nursing (current) drug therapy Erythrocyte Sedimentation Rate 1 Month Z79.899 - Other web content specialist (current) drug therapy Coding Level of Care Code Est Pt Level 4 (83125) Complex EM visit Add On G2211 Diagnoses Enteropathic arthritis M07.60 Trigger finger of right thumb M65.311 Crohn's disease of small intestine with complication K50.019 Gastrointestinal tract location: small intestine Digestive disease complication type: unspecified complication Transaminitis R74.01
--- OUTSIDE RECORDS SUMMARY | 2025-05-25 07:58 | XMS_ITS | Encounter Summary ---
Author Organization [facility] Address [address] [place] [address] Phone Care Team Providers Care Waste Recycler Name Role Phone Jose Dukes MD Primary Care Provider Kelia Hodge MD Unavailable [phone] Encounter Details Date Type Department Care Team (Late st Contact Info) Description 10/23/2021 Procedure Pass [facility] [address] [place] [address] Social History Tobacco Use Types Packs/Day Years Used Date Smoking Tobacco: Former Cigarettes Smokeless Tobacco: Never Comments:in high [facility] Alcohol Use Standard Drinks/Week Comments Yes 0 (1 standard drink = 0.6 oz pur e alcohol) 2 can/month Sex and Gender Information Value Date Recorded Sex Assigned at Not on file Legal Sex Male 7:08 PM EST Gender Identity Not on file Sexual Orientation Not on file documented as of this encounter Plan of Treatment Not on file documented as of this encounter Visit Diagnoses Not on filedocumented in this encounter Care Teams Waste Recycler Relationship Specialty Start Date End Date Jose Dukes MD [address] [place] [address] PCP - General Internal Medicine 12/26/14 Keila Hodge MD [address] [place] [address] [id number] Cardiology 10/15/21 documented as of this encounter Additional Source Comments The information contained in this document represents components of the legal health record. It is not the complete legal health record.[facility]
--- OUTSIDE RECORDS SUMMARY | 2025-05-25 07:58 | XMS_ITS | Clinical Summary ---
Author Organization [facility] Address [address] [place] [address] [address] [place] [address] Phone Care Team Providers Care Substance Abuse Services Director Name Role Phone Rosanna Talbert MD Primary Care Provider [phone] Allergies No known active allergies Medications zolpidem [...] Office Visit [facility] [address] [address] Martínez Townsend MD Stage 3b chronic kidney [...] Office Visit [facility] [address] [address] Martínez Townsend MD [address] [address] Health Maintenance Due Date Last [...] age to complete this topic Insurance Medicare [facility] Medicare [facility] Care Teams Substance Abuse Services Director Relationship Specialty Start Date End Date Rosanna Talbert MD [address] [place] [address] PCP - General Internal Medicine 06/29/24
--- OUTSIDE RECORDS SUMMARY | 2025-05-25 07:58 | XMS_ITS | Encounter Summary ---
Author Organization [facility] Address [address] [place] [address] Phone Care Team Providers Care Sports Complex Attendant Name Role Phone Joes Dukes MD Primary Care Provider Keila Hodge MD Unavailable [phone] Encounter Details Date Type Department Care Team (Late st Contact Info) Description 10/18/2021 Procedure Pass [facility] [address] [place] [address] Social History Tobacco Use Types Packs/Day Years Used Date Smoking Tobacco: Former Cigarettes Smokeless Tobacco: Never Comments:in high [facility] Alcohol Use Standard Drinks/Week Comments Yes 0 (1 standard drink = 0.6 oz pur e alcohol) 2 can/month Sex and Gender Information Value Date Recorded Sex Assigned at Not on file Legal Sex Male 7:08 PM EST Gender Identity Not on file Sexual Orientation Not on file documented as of this encounter Functional Status * Calculated C-SSRS Risk Score (Lifetime/Recent) Answer Date of Assessment Author No Risk Indicated 10/18/2021 7:53 PM Kenneth Canela RN * [place] Suicide Severity Rating Scale (Screener/Recent Self-Report) Question Answer Date of Assessment Author 1. Wish to be (Past 1 Month) No 022 7:53 PM Kenneth Canela RN 2. Non-Specific Active Suici apryl Thoughts (Past 1 Month) No 10/18/2021 7:53 PM Katerin Canela RN 6. Suicidal Behavior (Lifetime) No 7:53 PM Kenneth Canela RN documented as of this encounter Plan of Treatment Not on file documented as of this encounter Visit Diagnoses Not on filedocumented in this encounter Care Teams Sports Complex Attendant Relationship Specialty Start Date End Date oJse Dukes MD [address] [place] [address] PCP - General Internal Medicine 12/26/14 Keila Hodge MD [address] [place] [address] [email or web address] Cardiology 10/15/21 documented as of this encounter Additional Source Comments The information contained in this document represents components of the legal health record. It is not the complete legal health record.[facility]
--- OUTSIDE RECORDS SUMMARY | 2025-05-25 07:58 | XMS_ITS | Clinical Summary ---
Author Organization [facility] Address [address] [facility] [address] [place] [address] Phone Care Team Providers Care Home Aid Name Role Phone Jose Dukes MD Primary Care Provider Keila Hodge MD Unavailable [phone] Allergies No known active allergies Medications VITAMIN B COMPLEX ORAL Take by mouth. 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 f/b Dr. Blanca Skiver Machine Operator (Dr. 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 [...] 83 10/19/2021 7:31 AM EST Temperature 36.6 C (97.8 F) 12/19/2022 10:21 AM EDT Respiratory Rate 18 10/19/2021 7:31 AM EST [...] Hx and SMOKELESS TOBACCO SCREENING 1969 HEPATITIS C SCREENING 1974 PNEUMOCOCCAL VACCINES (50+ [...] 10/19/2021, 10/15/2021 POTASSIUM LEVEL 10/19/2022 10/19/2021, 10/15/2021 COVID-19 VACCINE ( season) 2024 01/13/2021, 12/15/2020 INFLUENZA VACCINE (#1) 2025 2, 07/18/2021, 06/22/2020, Additional history exists HEPATITIS A VACCINES Aged Out No long er eligible based on patient's age to complete this topic HIB VACCINES Aged Out No longer eligi ble based on patient's age to complete this topic MENINGOCOCCAL VACCINES (ACWY) Aged Out No longer eligible based on patient's age to complete this topic MENINGOCOCCAL VACCINES (B) Aged Out N o longer eligible based on patient's age to complete this topic Medical Devices Implanted Type Area Operative Supervisor Device Identifier Shelf Expiration Date Model / Serial / Lot Femoral Head 28mm Plus 1.5 Articuleze Biolox Delta Ceramic /14 Tapered - [id number] Implanted:Qty: 1 on 10/18/2021 by Dez Sykes MD at [facility] STANDARD Left: Hip [employer] [id number] / / Hip Hardware Hip Liner [id number] Acetabular Vivacit-E Dm - [id number] Implanted:Qty: 1 on 10/18/2021 by Dez Sykes MD at [facility] Left: Hip JAZ / DIV OF diaDexus 08/07/2026 [id number] / / [id number] Description:Transferred from one time implant Acetabular Shell Sz 60 Multiholemm Liner G 08 - [id number] Implanted:Qty: 1 on 10/18/2021 by Dez Sykes MD at [facility] Left: Hip [employer] [id number] 10/20/2028 [id number] / / [id number] Screw Bone 6.5x25mm Hip Acetabular Dome G7 Low Profile - [id number] Implanted:Qty: 1 on 10/18/2021 by Dez Sykes MD at [facility] Left: Hip [employer] [id number] 02/27/2031 [id number] / / [id number] Screw Dome 6.5x35mm G7 Aceetabular Low Profile Hip - [id number] Implanted:Qty: 1 on 10/18/2021 by Dez Sykes MD at [facility] Left: Hip [employer] [id number] 11/29/2030 [id number] / / [id number] Screw Bone 6.5x30mm Hip Dome G7 Acetabular Low Profile - [id number] Implanted:Qty: 1 on 10/18/2021 by Dez Sykes MD at [facility] Left: Hip [employer] [id number] 03/28/2031 [id number] / / [id number] Screw Bone 6.5x15mm Acetabular G7 Low Profile Dome - [id number] Implanted:Qty: 1 on 10/18/2021 by Dez Sykes MD at [facility] Left: Hip [employer] [id number] 03/13/2031 [id number] / / [id number] Screw Bone 6.5x15mm Acetabular G7 Low Profile Dome - [id number] Implanted:Qty: 1 on 10/18/2021 by Dez Sykes MD at [facility] Left: Hip [employer] [id number] 03/13/2031 [id number] / / [id number] Acetabular Liner 46mm Component Dual Mobility G7 - [id number] Implanted:Qty: 1 on 10/18/2021 by Dez Sykes MD at [facility] Left: Hip JAZ / DIV OF diaDexus [id number] 07/30/2031 [id number] / / [id number] Hip Stem Sz 7 Actis Duofix Cementless Std Collar - [id number] Implanted:Qty: 1 on 10/18/2021 by Dez Sykes MD at [facility] Left: Hip JNJ [facility] [employer] [id number] 08/27/2031 [id number] / / [id number] Procedures Procedure Name Priority Date/Time Associated Diagnosis Comments BASIC METABOLIC PANEL Routine 10/19/2021 8:46 AM EST HEMOGLOBIN A1C Routine 10/15/2021 12:51 PM EST DM (diabetes mellitus) from Last 3 Months or Most Recently Relevant to Health Maintenance Results * (ABNORMAL) Basic metabolic panel (10/19/2021 8:46 AM EST) SODIUM 135(L) 136 - 145 mmol/L [facility] POTASSIUM 5.1 3.4 - 5.1 mmol/L [facility] CHLORIDE 101 98 - 107 mmol/L [facility] CO2 22 22 - 31 mmol/L [facility] BUN 32(H) 6 - 23 mg/dL [facility] CREATININE 1.61(H) 0.50 - 1.20 mg/dL [facility] GLUCOSE 352(H) 70 - 100 mg/dL [facility] CALCIUM 8.4(L) 8.8 - 10.7 mg/dL [facility] EGFR 47(L) >59 mL/min/1. 73m2 [facility] Comment:Estimated glomerular filtration rate calculated using the CKD-EPI refit equation. ANION GAP 12 7 - 17 mmol/L [facility] Blood 10/19/2021 8:46 AM EST 10/19/2021 8:54 AM EST us Dez Sykes MD LAB BLOOD ORDERABLES Final Resul t [facility] [address] [place] [address] * (ABNORMAL) Hemoglobin A1c (10/15/2021 12:51 PM EST) HEMOGLOBIN A1C 7.0(H) 4.3 - 5.8 % [facility] Blood 10/15/2021 12:5 1 PM EST 10/15/2021 12:56 PM EST us Dez Sykes MD LAB BLOOD ORDERABLES Final Resul t Performing Organization Address City/[facility]/ZIP Co de Phone Number [address] [phone] from Last 3 Months or Most Recently Relevant to Health Maintenance [place] [address] [employer] MEDEX SUPPLEMENT MEDICARE PART A & B [employer] MED[employer] SUPPLEMENT MEDICARE PART A & B [employer] MEDEX SUPPLEMENT MEDICARE PART A & B [employer] MEDEX SUPPLEMENT MEDICARE PART A & B [employer] MEDEX SUPPLEMENT MEDICARE PART A & B [employer] MEDEX SUPPLEMENT MEDICARE PART A & B [employer] MEDEX SUPPLEMENT MEDICARE PART A & B [employer] MEDEX SUPPLEMENT MEDICARE PART A & B [employer] MEDEX SUPPLEMENT MEDICARE PART A & B MEDICARE PART A & B [employer]UE [employer]OSS MEDEX SUPPLEMENT Advance Directives For more information, please contact: [phone] (9AM - 5PM [facility], Thursday-Thursday) * Full Code (Latest Code Status on File) Date Activated Date Inactivated Comments 10/18/2021 7:59 PM Question Answer Comments Code Status Confirmed With: Patient Care Teams Home Aid Relationship Specialty Start Date End Date Jose Dukes MD [address] [place] [address] PCP - General Internal Medicine 12/26/14 Keila Hodge MD [address] [place] [address] [email or web address] Cardiology 10/15/21 Additional Source Comments The information contained in this document represents components of the legal health record. It is not the complete legal health record.[facility]
== END 2025-05-25 08:20 | disposition home or self-care (01) ==
LOC: HO.RHES 07:55
PROVIDERS: PCP Internal Medicine; Visit Provider Internal Medicine Rheumatology
DX: M07.60 Enteropathic arthropathies, unspecified site (principal); M65.311 Trigger thumb, right thumb; K50.019 Crohn's disease of small intestine with unspecified complications; R74.01 Elevation of levels of liver transaminase levels
CPT/HCPCS: 99214; G2211

== ENCOUNTER → 2025-05-25 07:55 | Outpatient (BNVA) | payer MEDICARE, SELFPAY | PROVIDERS: PCP Internal Medicine; Visit Provider Internal Medicine Rheumatology | DX: M07.60 Enteropathic arthropathies, unspecified site (principal); M65.311 Trigger thumb, right thumb; K50.019 Crohn's disease of small intestine with unspecified complications; R74.01 Elevation of levels of liver transaminase levels | CPT/HCPCS: 99212 ==

== ENCOUNTER 2025-06-27 12:58 | Outpatient (REF) | payer MEDICARE, SELFPAY ==
--- OUTSIDE RECORDS SUMMARY | 2025-06-27 14:10 | XMS_ITS | Encounter Summary ---
Author Organization [facility] Address [address] [place] [address] Phone Care Team Providers Care Hydrogenation Operator Name Role Phone Jose Dukes MD Primary Care Provider Keila Hodge MD Unavailable [phone] Encounter Details Date Type Department Care Team (Late st Contact Info) Description 10/18/2021 Procedure Pass [facility] [address] [place] [address] Social History Tobacco Use Types Packs/Day Years Used Date Smoking Tobacco: Former Cigarettes Smokeless Tobacco: Never Comments:in [facility] Alcohol Use Standard Drinks/Week Comments Yes 0 [...] 10/18/2021 7:53 PM Kenneth Canela RN * [place] Suicide Severity Rating Scale (Screener/Recent Self-Report) Question [...] on filedocumented in this encounter Care Teams Hydrogenation Operator Relationship Specialty Start Date End Date Jose Dukes MD [address] [place] [phone] PCP - General Internal Medicine 12/26/14 Keila Hodge MD [address] [place] [address] [email or web address] Cardiology 10/15/21 documented as of this encounter Additional Source Comments The information contained in this document represents components of the legal health record. It is not the complete legal health record.[facility]
--- OUTSIDE RECORDS SUMMARY | 2025-06-27 14:10 | XMS_ITS | Encounter Summary ---
Author Organization [facility] Address [address] [facility] [place] [address] Phone Care Team Providers Care Book Packer Name Role Phone Jose Dukes MD Primary Care Provider Keila Hodge MD Unavailable [phone] Encounter Details Date Type Department Care Team (Late st Contact Info) Description 10/23/2021 Procedure Pass [facility] [address] [place] [address] Social History Tobacco Use Types Packs/Day Years Used Date Smoking Tobacco: Former Cigarettes Smokeless Tobacco: Never Comments:in [facility] Alcohol Use Standard Drinks/Week Comments Yes [...] on filedocumented in this encounter Care Teams Book Packer Relationship Specialty Start Date End Date Jose Dukes MD [address] [place] [phone] PCP - General Internal Medicine 12/26/14 Keila Hodge MD [address] [place] [address] [phone] Cardiology 10/15/21 documented as of this encounter Additional Source Comments The information contained in this document represents components of the legal health record. It is not the complete legal health record.[facility]
--- OUTSIDE RECORDS SUMMARY | 2025-06-27 14:10 | XMS_ITS | Clinical Summary ---
Author Organization [facility] Address [address] [place] [address] [address] [place] [address] Phone Care Team Providers Care Overedge Sewer Name Role Phone Rosanna Talbert MD Primary Care Provider [phone] Allergies No known active allergies Medications zolpidem [...] Office Visit [facility] [address] [phone] Martínez Townsend MD [address] [phone] Health Maintenance Due Date Last [...] age to complete this topic Insurance Medicare [facility] Medicare [facility] Care Teams Overedge Sewer Relationship Specialty Start Date End Date Rosanna Talbert MD [address] [place] [address] PCP - General Internal Medicine 06/29/24
--- OUTSIDE RECORDS SUMMARY | 2025-06-27 14:10 | XMS_ITS | Clinical Summary ---
Author Organization [facility] Address [address] [facility] [address] [place] [address] Phone Care Team Providers Care Salvage Inspector Wood Parts Name Role Phone Jose Dukes MD Primary Care Provider Keila Hodge MD Unavailable [phone] Allergies No known active allergies Medications VITAMIN [...] (10/15/2021): currently stellera monthly. f/b Dr. Blanca Microbiology Director (Dr. 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 [...] LEVEL 10/19/2022 10/19/2021, 10/15/2021 INFLUENZA VACCINE (#1) 2025 2, 07/18/2021, 06/22/2020, Additional history exists COVID-19 VACCINE ( - 2024- season) 2025 01/13/2021, 12/15/2020 HEPATITIS A VACCINES Aged Out [...] this topic Medical Devices Implanted Type Area Manager Data Warehouse Device Identifier Shelf Expiration Date Model / Serial / Lot Femoral Head 28mm Plus 1.5 Articuleze Biolox Delta Ceramic /14 Tapered - [id number] Implanted:Qty: 1 on 10/18/2021 by Dez Sykes MD at [facility] STANDARD Left: Hip J[employer]J [employer] [id number] / / Hip Hardware Hip Liner [id number] Acetabular Vivacit-E Dm - [id number] Implanted:Qty: 1 on 10/18/2021 by Dez Sykes MD at [facility] Left: Hip JAZ / DIV OF Rootless 08/07/2026 [id number] / / [id number] Description:Transferred from one time implant Acetabular Shell Sz 60 Multiholemm Liner G 08 - [id number] Implanted:Qty: 1 on 10/18/2021 by Dez Sykes MD at [facility] Left: Hip [employer] [id number] 10/20/2028 [id number] / / [id number] Screw Bone 6.5x25mm Hip Acetabular Dome G7 Low Profile - [id number] Implanted:Qty: 1 on 10/18/2021 by Dez Sykes MD at [facility] Left: Hip [employer] [id number] 02/27/2031 [id number] / / [id number] Screw Dome 6.5x35mm G7 Aceetabular Low Profile Hip - [id number] Implanted:Qty: 1 on 10/18/2021 by Dez Sykes MD at [facility] Left: Hip [employer] [id number] 11/29/2030 [id number] / / [id number] Screw Bone 6.5x30mm Hip Dome G7 Acetabular Low Profile - [id number] Implanted:Qty: 1 on 10/18/2021 by Dez Sykes MD at [facility] Left: Hip [employer] [id number] 03/28/2031 [id number] / / [id number] Screw Bone 6.5x15mm Acetabular G7 Low Profile Dome - [id number] Implanted:Qty: 1 on 10/18/2021 by Dez Sykes MD at [facility] Left: Hip [employer] [id number] 03/13/2031 [id number] / / [id number] Screw Bone 6.5x15mm Acetabular G7 Low Profile Dome - [id number] Implanted:Qty: 1 on 10/18/2021 by Dez Sykes MD at [facility] Left: Hip [employer] [id number] 03/13/2031 [id number] / / [id number] Acetabular Liner 46mm Component Dual Mobility G7 - [id number] Implanted:Qty: 1 on 10/18/2021 by Dez Sykes MD at [facility] Left: Hip JAZ / DIV OF Rootless [id number] 07/30/2031 [id number] / / [id number] Hip Stem Sz 7 Actis Duofix Cementless Std Collar - [id number] Implanted:Qty: 1 on 10/18/2021 by Dez Sykes MD at [facility] Left: Hip JNJ [facility] [employer] [id number] 08/27/2031 [id number] / / [id number] Procedures Procedure Name Priority Date/Time Associated Diagnosis Comments BASIC METABOLIC PANEL Routine 10/19/2021 8:46 AM EST HEMOGLOBIN A1C Routine 10/15/2021 12:51 PM EST DM (diabetes mellitus) from Last 3 Months or Most Recently Relevant to Health Maintenance Results * (ABNORMAL) Basic metabolic panel (10/19/2021 8:46 AM EST) SODIUM 135(L) 136 - 145 mmol/L [facility] POTASSIUM 5.1 3.4 - 5.1 mmol/L [facility] CHLORIDE 101 98 - 107 mmol/L [facility] CO2 22 22 - 31 mmol/L [facility] BUN 32(H) 6 - 23 mg/dL [facility] CREATININE 1.61(H) 0.50 - 1.20 mg/dL [facility] GLUCOSE 352(H) 70 - 100 mg/dL [facility] CALCIUM 8.4(L) 8.8 - 10.7 mg/dL [facility] EGFR 47(L) >59 mL/min/1. 73m2 [facility] Comment:Estimated glomerular filtration rate calculated using the CKD-EPI refit equation. ANION GAP 12 7 - 17 mmol/L [facility] Blood 10/19/2021 8:46 AM EST 10/19/2021 8:54 AM EST us Dez Sykes MD LAB BLOOD ORDERABLES Final Resul t [facility] [address] [place] [address] * (ABNORMAL) Hemoglobin A1c (10/15/2021 12:51 PM EST) HEMOGLOBIN A1C 7.0(H) 4.3 - 5.8 % [facility] Blood 10/15/2021 12:5 1 PM EST 10/15/2021 12:56 PM EST us Dez Sykes MD LAB BLOOD ORDERABLES Final Resul t Performing Organization Address City/[facility]/ZIP Co de Phone Number [address] [phone] from Last 3 Months or Most Recently Relevant to Health Maintenance [place] [address] [place] [address] [employer] MEDEX SUPPLEMENT MEDICARE PART A & B [employer] MEDEX SUPPLEMENT MEDICARE PART A & B [employer] MEDEX SUPPLEMENT MEDICARE PART A & B [employer] MEDEX SUPPLEMENT MEDICARE PART A & B [employer] MEDEX SUPPLEMENT MEDICARE PART A & B [employer] MEDEX SUPPLEMENT MEDICARE PART A & B [employer] MEDEX SUPPLEMENT MEDICARE PART A & B [employer] MEDEX SUPPLEMENT MEDICARE PART A & B [employer] MEDEX SUPPLEMENT MEDICARE PART A & B MEDICARE PART A & B BLUE CROSS MEDEX SUPPLEMENT Advance Directives For more information, please contact: [phone] (9AM - 5PM [facility], Thursday-Thursday) * Full Code (Latest Code Status on File) Date Activated Date Inactivated Comments 10/18/2021 7:59 PM Question Answer Comments Code Status Confirmed With: Patient Care Teams Salvage Inspector [employer] Relationship Specialty Start Date End Date Jose Dukes MD [address] [place] [phone] PCP - General Internal Medicine 12/26/14 Keila Hodge MD [address] [place] [address] [email or web address] Cardiology 10/15/21 Additional Source Comments The information contained in this document represents components of the legal health record. It is not the complete legal health record.[facility]
[2025-06-27 18:00] LABS: MANUAL DIFF FLAG NO
[2025-06-27 18:12] LABS: Hematocrit 45.4 % (42.0-52.0); Hemoglobin 15.3 g/dl (14.0-18.0); Imm Gran Abs Auto 0.06 X10*3/uL (0.00-0.03); Imm Gran Pct Auto 0.5 % (0.0-0.4); Lymphocytes Absolute Auto 2.7 X10*3/uL (1.2-4.9); Mean Corpuscular HGB Conc 33.7 g/dl (31.0-36.0); Mean Corpuscular Hemoglobin 32.6 pg (27.0-33.0); Mean Corpuscular Volume 96.6 fL (80.0-98.0); NRBC Abs Auto 0.000 X10*3/uL (0.0-0.012); NRBC Pct Auto 0.0 /100WBC (0.0-0.2); Platelet Count 251 X10*3/uL (160-400); Red Blood Count 4.70 X10*6/uL (4.60-5.80); White Blood Count 10.9 X10*3/uL (4.8-10.8)
[2025-06-27 18:27] LABS: Alanine Aminotransferase 34 U/L (0-40); Aspartate Amino Transferase 41 U/L (5-37); Estimated Glomerular Filt Rate 52
== END 2025-06-27 12:59 | disposition home or self-care (01) ==
LOC: HO.HKASLDS 12:58
PROVIDERS: Visit Provider Internal Medicine Rheumatology
DX: Z79.899 Other long term (current) drug therapy (principal)
CPT/HCPCS: 36415; 82565; 84450; 84460; 85025; 85652; 86140

== ENCOUNTER 2025-08-29 09:46 | Outpatient (REF) | payer MEDICARE, SELFPAY ==
--- OUTSIDE RECORDS SUMMARY | 2025-08-29 12:17 | XMS_ITS | Continuity of Care Document ---
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 Plan of Treatment Reminders Order Date Submit Date Provider Last Modified By Organization Details Last Modified Time Details Appointments RECHECK 15 2025 09:30A M Jacob brown PA-C Not available Not available Not available Lab None recorded . Referral None recorded . Procedures None recorded . Surgeries None recorded . Imaging None recorded . Medication Orders None recorded . Patient TargetsNo targets recorded. Patient InstructionsNo instructions recorded. Reason for Referral None Reported. Problems Name Problem SNOMED Code Status Onset Date Resolution Date Notes Provider Name and Address Organization Details Recorded Time Pain of right shoulder joint 0119085058992 9100 Active 2024 FIDENCIO OSEI [facility] 5 09:04:30 Osteoarthri tis of right glenohumera l joint 1353107413242 101 Active 2024 Jacob brown PA-C [address], [place], [address], [facility] 09:02:24 Problem Notes None recorded. Procedures Surgical History Date Name Laterality Status Provider Name and Address Organization Details Recorded Time 5 Shoulder Joint/Bursa Injection, L/R w/US Lidocaine 1% 1 cc completed Jacob Domínguez PA-C [address], [place], [address], [facility] 07/28/2025 14:45:22 5 Shoulder Joint/Bursa Injection, L/R w/US Lidocaine 1% 1 cc completed Jacob Domínguez PA-C [address] [facility], [place], [address], [facility] 04/28/2025 14:29:00 5 Sports Shoulder completed Jacob Domínguez PA-C [address], [place], [address], [facility] 01/26/2025 09:02:12 5 PM Shoulder Kenalog 2cc Injection Unilateral completed Jefferson Seo MD [address] [facility], [place], [address], [facility] 10/20/2024 09:29:42 Hip Surgery completed Madelyn Luna [facility] 04/28/2025 14:12:06 Shoulder Surgery completed Madelyn Luna [facility] 04/28/2025 14:12:06 Imaging Results None recorded. Procedure Notes None recorded. Medical Equipment None Reported. Allergies No known drug allergies Medications Name Sig Start Date Stop Date Status Note LastModified by Organization Details LastModified Time cyclobenzap rine 10 mg tablet TAKE 1 TABLET BY MOUTH THREE TIMES DAILY active Not Available Not Available No t Available diphenoxyla te-atropine 2.5 mg-0.025 mg tablet TAKE 1 TABLET BY MOUTH FOUR TIMES DAILY FOR 14 DAYS NEEDED FOR LOOSE STOOLS active Not Available Not Available No t Available valsartan 80 mg tablet TAKE 1 TABLET DAILY active Not Available Not Available No t Available Remicade 100 mg intravenous solution Inject by intraveno us route. active Not Available Not Available No t Available peg-electro lyte solution 420 gram oral solution TAKE 240ML EVERY 10 MINUTES. STAY ON CLEAR LIQUID DIET ALL DAY THE DAY BEFORE THE PROCEDURE . DRINK HALF THE DOSE THE EVENING BEFORE AND THE OTHER HALF EARLY IN THE MORNING ON THE DAY OF THE PROCEDURE . active Not Available Not Available No t [...] ent'; Not Available Not Available Not Available lidocaine 5 % topical patch APPLY 3 PATCHES TOPICALLY TO THE SKIN DAILY REMOVE PATCHES AFTER 12 HOURS active Not Available Not Available No t Available zolpidem 5 mg tablet TAKE 1 TABLET BY MOUTH DAILY AT BEDTIME NEEDED FOR INSOMNIA active Not Available Not Available No t Available Novolog U-100 Insulin aspart 100 unit/mL subcutaneou s solution active Not Available Not Available N ot Available Microlet Lancet USE TO TEST BLOOD SUGAR TWICE DAILY ON INSULIN PUMP active Not Available Not Available No t Available oxycodone 5 mg tablet TAKE 1 TABLET BY MOUTH EVERY 6 HOURS NEEDED FOR PAIN active Not Available Not Available No t Available rosuvastati n 10 mg tablet TAKE 1 TABLET DAILY active Not Available Not Available No t Available fluocinolon e acetonide oil 0.01 % ear drops active Not Available Not Available No t Available cholecalcif ana (vitamin D3) 25 mcg (1,000 unit) tablet TAKE 1 TABLET BY MOUTH ONCE DAILY active Not Available Not Available No t Available GaviLyte-G 236 gram-22.74 gram-6.74 gram-5.86 gram oral solution MIX AND DRINK DIRECTED active Not Available Not Available No t Available Stelara 90 mg/mL subcutaneou s syringe 01/26 completed Not Available Not Available Not Available Eliquis 5 mg tablet TAKE 1 TABLET BY MOUTH TWICE DAILY FOR 10 DAYS active Not Available Not Available No t Available Jardiance 25 mg tablet TAKE 1 TABLET BY MOUTH DAILY IN THE MORNING HIGHER DOSE KEEP UP WITH FLUID active Not Available Not Available No t Available Trulicity 0.75 mg/0.5 mL subcutaneou s pen injector ADMINISTE R 0.75 MG UNDER THE SKIN EVERY WEEK. ROTATE INJECTION SITES. PLEASE active Not Available Not Available No t Available Fiasp U-100 Insulin 100 unit/mL subcutaneou s solution INJECT MAXIMUM DAILY DOSE 100 UNITS VIA INSULIN PUMP (REPLACIN G NOVOLOG VIAL) active Not Available Not Available No t Available Omnipod Dash Pods (Gen 4) subcutaneou s cartridge USE PODS TO INFUSE INSULIN CONTINUOU SLY VIA INSULIN PUMP; CHANGE POD EVERY 2 DAYS active Not Available Not Available No t Available Ultra-Fine Insulin Syringe 0.5 mL 31 gauge x /16 USE AT LEAST EVERY 3 DAYS TO FILL INSULIN PUMP active Not Available Not Available No t Available Vitals Date Recorded Body height Body mass index (BMI) Body weight Provider Name and Address Organization Details Last Updated DateTime 07/28/2025 162.56 cm 30.9 kg/m2 12671.63 g Madelyn Luna [place] [facility] 07/28/2025 14:39:37 Social History Question Answer Notes LastModified by Organizat [employer] Details LastModified Time What Is Your Relationship Status? Information not available 04/28/2025 Sex: Unknown Functional Status Question Answer Note LastModified by Organizat [employer] Details LastModified Time Do you use any illicit or recreational drugs? No Information not available 04/28/2025 Do you or have you ever used any other forms of tobacco or nicotine? No Information not available 04/28/2025 Mental Status None recorded. Family History Nothing Reported. Medical History Condition Response Allergies/Hayfever N Coronary Artery Disease N Anxiety/Depression N Breathing or lung disorders N Emphysema N Nerve Disorders N Thyroid Problems N COPD N Pacemaker N Anemia N Kidney/Bladder Problems N Vascular Disease N Heart Trouble N Heart Attack ([place]) N Gastrointestinal Disease Y Cholesterol Y Diabetes Y Autoimmune disease N Bleeding Disorder N Inflammatory Joint disease N Orthotics N Arthritis Y Seizures/Epilepsy N Blood Clot N AIDS/HIV N Congestive Heart Failure (CHF) N Acid Reflux (GERD) N Cancer N Stroke N Asthma N Circulation Problems N Peripheral Vascular Disease N Sleep Apnea N Hepatitis N Heart Disease N Rheumatoid Arthritis N Arrhythmia N Pulmonary Embolism N Headaches N Fibromyalgia N Hypertension N Osteoporosis N Past Encounters Encounter ID Performer Location Encounter Start Date Encounter Closed Date Diagnosis/Indication Diagnosis SNOMED-CT Code Diagnosis ICD10 Code Diagnosis IMO Codes Diagnosis Note [id number] [place] [address] 07/28/2025 14:16:58 08/10/2025 09:13:07 Osteoarthritis of right glenohumeral joint [id number] 124610 M19.011 [id number] Health Concerns Section Related Observation LastModified by Organization Detai ls LastModified Time None Recorded Concern Status LastModified by Organization Details LastModified Time None Recorded Payers Encounter Date Sequence Insurance Name Policy Number Policy Oconnor Covered Member ID Oconnor Member ID Guarantor Name 07/28/2025 1 [place] [employer] Abdoulaye Castanon [id number] Abdoulaye Castanon 07/28/2025 2 [place] [id number] Abdoulaye Castanon [id number] Abdoulaye Castanon Notes Date Note Type Note Provider Name and Address Organization Details Recorded Time 07/28/2025 text/html I am seeing the patient today under the supervision of Dr. García who was available but who did not see the patient. REASON FOR VISITPatient comes to the office with known glenohumeral joint arthritis of the Right shoulder. The patient has done well with conservative management for their shoulder pain. Recently reports increasing discomfort over the past several weeks without injury. Pain is generalized about the shoulder and discomfort is noted at night. PAST MEDICAL/SURGICAL HISTORYCurrent medications per intake sheet. PHYSICAL FINDINGSThe patient is well appearing, in no apparent distress, alert and oriented to person, place and time. Gait is symmetric. No significant swelling, warmth or erythema about either shoulder.There is mild tenderness to palpation about the shoulder. Active range of motion of the shoulder is restricted with moderate pain through mid range manipulations. 4/5 strength of the shoulder. Good stability of the shoulder.Peripheral, vascular, lymphatic examination, skin, neurologic coordination, reflexes, sensation are within normal limits. ASSESSMENTRight glenohumeral joint arthritis PLANThe patient has done well with conservative management in regards to the shoulder. Continued conservative management recommended. Moderating activities with the upper extremity recommended also. See procedure note. Follow up as needed. Jacob Domínguez PA-C [address] [facility] [address], [place], [address], [facility] 07/28/2025 14:45:34
--- OUTSIDE RECORDS SUMMARY | 2025-08-29 12:17 | XMS_ITS | Data Portability ---
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 Office, [address] [facility], [facility] [address], [place], [address], 10/31/2024 13:14:23 Medication Orders None recorded . [...] a4ajBk vP9nXo QUaueC m3YtLR FvZlgJ JJ8mAn HZtai3 4a1049 AC0Kqb 3WHVqC jKiQtr MwF INTERFACE [facility] [address], [place], [address], 10/20/2024 09:14:28 10/20/19 25 10/20/2024 XR, shoul letha, 2 or more view http:/ [email or web address] ?Encry pted=s hAaTro YD8dLq bEUv6g %2BXZw aYqtaq 0bqfl% 2Fg9IQ a4ajBk vP9nXo QUaueC m3YtLR FvZlgJ JJ8mAn HZtai3 2f5537 AC0Kqb 3WHVqC jKiQtr MwF INTERFACE [facility] [address] [facility] [address], [place], [address], 10/20/2024 09:14:30 Result Notes Documentation Provider Name and Address Organization Details Recorded Time Xr, Shoulder, 2 Or More View : [email or web address] Encrypted=tgNhGbsDD3rBwgK Uv6g%8IYGzlQpfkb9dhgy%2Fg 8DAt4oaXqdZ4bZhZUsusEs8Vx CFTnMksPRO9kKwZIkeq22v125 5PU2Rdd6RPCvPsDuGmbLnK Not Available [facility] 10/20/2024 09:14: 29 Xr, Shoulder, 2 Or More View : [email or web address] Encrypted=nySaLoySF1pUkzT Uv6g%4ZZTnhTozzq1dwle%2Fg 6BQg6iaYxtY8cOjDQnjrBn9Bc NFGvFrjMND1jYeTZpvi08g379 1FO8Xdw2HZFuFlJhMsbJuV Not Available [facility] 10/20/2024 09:14: 31 Problems Name Problem SNOMED Code Status Onset Date Resolution Date Notes Provider Name and Address Organization Details Recorded Time Pain of right shoulder joint 2152603273753 9100 Active 2024 FIDENCIO samuel [place] - [facility] 09:04:30 Osteoarthri tis of right glenohumera l joint 1774379005822 101 Active 2024 Jacob brown PA-C [address], [place], [address], [facility] 09:02:24 Problem Notes None recorded. Procedures Surgical History Date Name Laterality Status Provider Name and Address Organization Details Recorded Time 5 Shoulder Joint/Bursa Injection, L/R w/US Lidocaine 1% 1 cc completed Jacob Domínguez PA-C [address], [place], [address], [facility] 07/28/2025 14:45:22 5 Shoulder Joint/Bursa Injection, L/R w/US Lidocaine 1% 1 cc completed Jacob Domínguez PA-C [address], [place], [address], [facility] 04/28/2025 14:29:00 5 Sports Shoulder completed Jacob Domínguez PA-C [address], [place], [address], [facility] 01/26/2025 09:02:12 5 PM Shoulder Kenalog 2cc Injection Unilateral completed Jefferson Seo MD [address], [place], [address], [facility] 10/20/2024 09:29:42 Hip Surgery completed Madelyn Luna [facility] 04/28/2025 14:12:06 Shoulder Surgery completed Madelyn Luna [facility] 04/28/2025 14:12:06 Imaging Results None recorded. Procedure [...] Insulin Syringe 0.5 mL 31 gauge x 5/16 USE AT LEAST EVERY 3 DAYS TO FILL INSULIN PUMP active Not Available Not Available No t Available Vitals Date Recorded Body height Body mass index (BMI) Body weight Provider Name and Address Organization Details Last Updated DateTime 10/20/2024 162.56 cm 24 kg/m2 90661.93 g FIDENCIO OSEI [facility] 10/20/2024 09:04:23 Date Recorded Body height Body mass index (BMI) Body weight Provider Name and Address Organization Details Last Updated DateTime 01/26/2025 162.56 cm 24 kg/m2 80194.93 g Carmen Spencer [facility] 01/26/2025 08:56:26 Date Recorded Body height Body mass index (BMI) Body weight Provider Name and Address Organization Details Last Updated DateTime 04/28/2025 162.56 cm 30.9 kg/m2 41350.63 g Madelyn Luna [facility] 04/28/2025 14:12:57 Date Recorded Body height Body mass index (BMI) Body weight Provider Name and Address Organization Details Last Updated DateTime 07/28/2025 162.56 cm 30.9 kg/m2 61903.63 g Madelyn Luna [facility] 07/28/2025 14:39:37 Social History Question Answer Notes LastModified by Organizat ion Details LastModified Time What Is Your Relationship Status? Information not available 04/28/2025 Sex: Unknown Functional Status Question Answer Note LastModified by Organizat ion Details LastModified Time Do you use any [...] Disease N Heart Trouble N Gastrointestinal Disease Y Autoimmune disease N Inflammatory Joint disease N Orthotics N Arthritis Y Blood Clot N Acid Reflux (GERD) N Cancer N Stroke N Circulation Problems N Rheumatoid Arthritis N Arrhythmia N Headaches N Fibromyalgia N Allergies/Hayfever N Breathing or lung disorders N Nerve Disorders N Thyroid Problems N Kidney/Bladder Problems N Anemia N Heart Attack ([place]) N Cholesterol Y Diabetes Y Bleeding Disorder N Seizures/Epilepsy N AIDS/HIV N Congestive Heart Failure (CHF) N Asthma N Peripheral Vascular Disease N Sleep Apnea N Hepatitis N Heart Disease N Pulmonary Embolism N Hypertension N Osteoporosis N Past Encounters Encounter ID Performer Location Encounter Start Date Encounter Closed Date Diagnosis/Indication Diagnosis SNOMED-CT Code Diagnosis ICD10 Code Diagnosis IMO Codes Diagnosis Note [id number] MD SANJU Arenas [address] [place] [address] 10/20/2024 08:47:16 10/31/2024 13:14:23 Pain of right shoulder joint 9642536011 9809115 M25.511 [id number] TORREY Flowers [address] [place] [address] 01/26/2025 08:49:48 02/08/2025 16:19:19 Osteoarthritis of right glenohumeral joint 1008877104 614383 M19.011 [id number] [place] [address] 04/28/2025 14:06:24 05/05/2025 14:05:42 Osteoarthritis of right glenohumeral joint 7803822772 512216 M19.011 [id number] [address] [place] [address] 07/28/2025 14:16:58 08/10/2025 09:13:07 Osteoarthritis of right glenohumeral joint 8517197578 313154 M19.011 [id number] Health Concerns Section Related Observation LastModified by Organization Detai ls LastModified Time None Recorded Concern Status LastModified by Organization Details LastModified Time None Recorded Advance Directives Directive None Recorded Payers Insurance Date Sequence Insurance Name Policy Number Policy Oconnor Covered Member ID Oconnor Member ID Guarantor Name 08/10/2025 2 [place] [id number] Abdoulaye Eder Castanon [id number] Abdoulaye Castanon 07/28/2025 1 [place] [employer] Abdoulaye Eder Castanon [id number] Abdoulaye Eder Castanon Notes Date Note Type Note Provider Name and Address Organization Details Recorded Time 10/20/2024 text/html HPI: Patient presents with complaints of right lateral brachial pain, [...] Subscapularis 5 or 5. Negative speed's. Positive Vulcan'sDeltoid intact. Axillary nerve intact. No instability. left [...] were ordered, obtained and reviewed today at [facility]. Four views of the rightshoulder demonstrate type [...] necessary based upon symptoms. Jefferson Seo MD [address] [place] [address] [address], [place], [address], [facility] [place] [facility] 10/20/2024 09:30:05 01/26/2025 text/html I am seeing [...] up as needed. Jacob Domínguez PA-C [address], [place], [address], [facility] 01/26/2025 09:02:37 04/28/2025 text/html I am seeing the patient today under the supervision of Dr. Vidal who was available but who did not [...] up as needed. Jacob Domínguez PA-C [address], [place], [address], [facility] 04/28/2025 14:29:13 07/28/2025 text/html I am seeing the patient [...] up as needed. Jacob Domínguez PA-C [address] [facility] [address], [place], [address], [facility] [place] [facility] 07/28/2025 14:45:34
[2025-08-29 13:30] LABS: MANUAL DIFF FLAG NO
[2025-08-29 13:37] LABS: Hematocrit 42.5 % (42.0-52.0); Hemoglobin 14.5 g/dl (14.0-18.0); Imm Gran Abs Auto 0.08 X10*3/uL (0.00-0.03); Imm Gran Pct Auto 0.8 % (0.0-0.4); Lymphocytes Absolute Auto 2.6 X10*3/uL (1.2-4.9); Mean Corpuscular HGB Conc 34.1 g/dl (31.0-36.0); Mean Corpuscular Hemoglobin 32.4 pg (27.0-33.0); Mean Corpuscular Volume 94.9 fL (80.0-98.0); NRBC Abs Auto 0.000 X10*3/uL (0.0-0.012); NRBC Pct Auto 0.0 /100WBC (0.0-0.2); Platelet Count 254 X10*3/uL (160-400); Red Blood Count 4.48 X10*6/uL (4.60-5.80); White Blood Count 10.5 X10*3/uL (4.8-10.8)
[2025-08-29 13:51] LABS: Alanine Aminotransferase 34 U/L (0-40); Aspartate Amino Transferase 38 U/L (5-37); Estimated Glomerular Filt Rate 47
== END 2025-08-29 09:47 | disposition home or self-care (01) ==
LOC: HO.HKASLDS 09:46
PROVIDERS: PCP Internal Medicine; Visit Provider Internal Medicine Rheumatology
DX: M07.6 Enteropathic arthropathies (principal); M65.311 Trigger thumb, right thumb; K50.019 Crohn's disease of small intestine with unspecified complications; R74.01 Elevation of levels of liver transaminase levels; M65.321 Trigger finger, right index finger; Z79.899 Other long term (current) drug therapy
CPT/HCPCS: 36415; 82565; 84450; 84460; 85025; 85652; 86140

== ENCOUNTER 2025-08-29 09:46 | Outpatient (AMB) | payer MEDICARE, SELFPAY ==
--- OUTSIDE RECORDS SUMMARY | 2025-08-28 08:20 | XMS_ITS | Encounter Summary ---
Author Organization [facility] Address [address] [address] Phone Care Team Providers Care Diesel Pile Driver Operator Name Role Phone Rosanna Talbert MD Primary Care Provider [phone] Reason for Visit * Reason Comments Chronic Kidney Disease Encounter Details Date Type Department Care Team (Late st Contact Info) Description 08/28/2025 8:20 AM EST Office Visit [facility] [address] [phone] Martínez Townsend MD [address] [phone] Stage 3b chronic kidney disease (HCC) (Primary Dx); Type 2 diabetes mellitus with other diabetic kidney complication, not otherwise specified (HCC); Vitamin D deficiency, not otherwise specified; Pulmonary embolism, not otherwise specified (HCC); Hypertension; Dyslipidemia; Diabetes mellitus, not otherwise specified (HCC); Crohn's disease, not otherwise specified (HCC) Social History Tobacco Use Types Packs/Day Years Used Date Smoking Tobacco: Never Smokeless Tobacco: Never Alcohol Use Standard Drinks/Week Comments Yes 0 (1 standard drink = 0.6 oz pur e alcohol) Sex and Gender Information Value Date Recorded Sex Assigned at Not on file Legal Sex Male 11:40 AM EST Gender Identity Not on file Sexual Orientation Not on file documented as of this encounter Last Filed Vital Signs Vital Sign Reading Time Taken Comments Blood Pressure 120/68 08/28/2025 8:19 AM EST Pulse 101 08/28/2025 8:19 AM EST Temperature - - Respiratory Rate - - Oxygen Saturation 99% 08/28/2025 8:19 AM EST Inhaled Oxygen Concentration - - Weight 79.4 kg (175 lb) 08/28/2025 8:19 AM EST Height - - Body Mass Index 31 06/29/2024 8:44 AM EDT documented in this encounter Functional Status * BP Answer Date of Assessment Author 120/68 08/28/2025 8:19 AM EST Mathues, C halonda * Pulse Answer Date of Assessment Author 101 08/28/2025 8:19 AM EST Matheus, C halonda * SpO2 Answer Date of Assessment Author 99 08/28/2025 8:19 AM EST Matheus, C halonda * Weight Answer Date of Assessment Author 2800 08/28/2025 8:19 AM EST Matheus, C halonda * BP Location Answer Date of Assessment Author Left upper arm 08/28/2025 8:19 AM EST Matheus, C halonda * BP Answer Date of Assessment Author 120/68 08/28/2025 8:19 AM EST Matheus, C halonda * Weight Answer Date of Assessment Author 2800 08/28/2025 8:19 AM EST Matheus, C halonda * BP Location Answer Date of Assessment Author Left upper arm 08/28/2025 8:19 AM EST Matheus, C halonda documented as of this encounter Progress Notes * Martínez Townsend MD - 08/28/2025 8:20 AM EST Images from the original note were not included. [facility] Office Visit Patient Name: Abdoulaye Castanon, Male Date of : 1955, 70 y.o. Date: 08/28/2025 History of Present Illness Abdoulaye Castanon is a 70 y.o. male: is here for follow up of multiple medical problems including ckd, htn, dm, proteinuria, hypercoagulable state. Interim history since the last encounter was reviewed. No acute complaints were voiced. Denied chest pain, flank pain, hematuria, hemoptysis or fevers. All other systems were reviewed and negative. Available lab results were reviewed and discussed. Medication list was reviewed and discussed. Any available out of office blood pressure readings were reviewed and discussed. CV and Renal risk was assessed and discussed. The following portions of the patient's chart were reviewed in this encounter and updated as appropriate: Tobacco Allergies Meds Problems Med Hx Surg Hx Fam Hx Past Medical History Past Medical History: Diagnosis Date Diabetes mellitus without mention of complication, type II or unspecified type, not stated as uncontrolled (HCC) Essential hypertension Hypothyroidism Other and unspecified hyperlipidemia Sleep apnea Past Surgical History History reviewed. No pertinent surgical history. Family History History reviewed. No pertinent family history. Social History Social History Tobacco Use Smoking status: Never Smokeless tobacco: Never Substance Use Topics Alcohol use: Yes Medication List Current Outpatient Medications Medication Sig Dispense Refill cholecalciferol (VITAMIN D-3) 25 MCG (1000 UT) tablet Take 2 tablets (2,000 Units total) by mouth 1(one) time each day 180 tablet 3 doxycycline (PERIOSTAT) 20 MG tablet Take 20 mg by mouth in the morning and 20 mg in the evening. Take with a full glass of water and do not lie down for at least 30 minutes after.. Empagliflozin (Jardiance) 25 MG tablet Take 25 mg by mouth 1 (one) time each day in the morning inFLIXimab (REMICADE) 100 MG injection Infuse into a venous catheter insulin aspart (NovoLOG) 100 UNIT/ML patient supplied pump Inject under the skin continuously Multiple Vitamin (multivitamin) tablet Take 1 tablet by mouth 1 (one) time each day omeprazole OTC (PriLOSEC OTC) 20 MG EC tablet Take 20 mg by mouth if needed Do not crush, chew, or split. rosuvastatin (CRESTOR) 10 MG tablet Take 10 mg by mouth 1 (one) time each day Turmeric (QC TUMERIC COMPLEX PO) Take 1,000 mg by mouth 1 (one) time each day valsartan (DIOVAN) 40 MG tablet Take 40 mg by mouth 1 (one) time each day zolpidem CR (AMBIEN CR) 6.25 MG CR tablet Take 6.25 mg by mouth at night if needed for sleep Do notcrush, chew, or split. No current facility-administered medications for this visit. Allergy List No Known Allergies Physical Exam BP 120/68 (BP Location: Left upper arm, Patient Position: Sitting, BP Cuff Size: Adult) Pulse 101 Wt 175 lb (79.4 kg) SpO2 99% BMI 31.00 kg/m?? Last 3 office BP readings: BP Readings from Last 3 Encounters: 08/28/25 120/68 02/27/25 106/72 06/29/24 105/73 General: Well developed well nourished in no acute distress Neuro: alert interactive without delirium Eyes: anicteric ENT: moist membranes, no stridor Cardiovascular: regular rate and rhythm, no rub Pulmonary: no distress or tachypnea Abdomen: soft and nondistended Genitourinary: no suprapubic tenderness or bladder distension to palpation Musculoskeletal: No bony tenderness or deviation Dermatologic: No visible rash on exposed skin Hematologic: no petechiae or ecchymoses on exposed skin Extremities: edema is minimal Labs Chemistry Lab Units 08/21/25 1409 02/17/25 1329 07/19/24 0915 CREATININE mg/dL 1.40* 1.40* 1.37* BUN mg/dL 20 24 26 POTASSIUM mmol/L 4.3 4.6 4.2 SODIUM mmol/L 140 138 142 CO2 mmol/L 25 16* 19* CHLORIDE mmol/L 104 105 108* ALBUMIN g/dL 4.3 4.1 4.2 EGFR mL/min/1.73 54* 55* 56* WBC AUTO x10E3/uL 10.2 10.3 10.3 HEMATOCRIT % 45.8 44.0 44.4 HEMOGLOBIN g/dL 15.4 14.5 14.5 PLATELETS AUTO x10E3/uL 245 190 223 Bone Mineral Lab Units 08/21/25 1409 02/17/25 1329 07/19/24 0915 CALCIUM mg/dL 10.1 9.2 9.3 PHOSPHORUS mg/dL 3.9 3.5 2.7* ALK PHOS IU/L 79 66 93 PTH pg/mL 11* 29 9* VIT D 25 HYDROXY ng/mL 25.2* 22.4* 25.6* Urine Lab Units 08/21/25 1409 02/17/25 1329 07/19/24 0915 PROT/CREAT RATIO UR mg/g creat 181 305* 308* No lab exists for component: IRON SATURATION No lab exists for component: CYCLOSPORITR Ct scan 2009 - normal kidneys - [facility] Sonogram 12/2023 - bilateral cortical thinning and echogenic changes Assessment & Plan 1. Stage 3b chronic kidney disease (HCC) 2. Type 2 diabetes mellitus with other diabetic kidney complication, not otherwise specified (HCC) 3. Vitamin D deficiency, not otherwise specified 4. Pulmonary embolism, not otherwise specified (HCC) 5. Hypertension 6. Dyslipidemia 7. Diabetes mellitus, not otherwise specified (HCC) 8. Crohn's disease, not otherwise specified (HCC) IMPRESSION: CKD STAGE 3A, A2 - DUE TO MULTIPLE NEPHROTOXIC INSULTS (MEDS, CHELSEA, CROHNS, PE, ETC) AND LIKELY EVOLVING UNDERLYING DM NEPHROPATHY - CREATININE 6627-9873 IS STABLE AT 1.4 WITH GFR 50-55 CC/MIN PROTEINURIA SINCE 2009 - MACR 02/2024 WAS 56 MG/GM - PEAK IN [id number] OF 225 MG/GM - STABLE/REGRESSED IN 2024 CHELSEA SUMMER 2012 DUE TO MED REACTION - DETAILS VAGUE DM X 40 YEARS - HE TELLS ME HE IS TYPE 2 - HE IS ON SGLT2 AND INSULIN PUMP CROHN'S SINCE AGE 19 - S/P PARTIAL COLON RESECTION HTN? - PRESUMABLY ON ARB FOR PROTEINURIA - ON TARGET AT THIS TIME PULMONARY EMBOLUS 12/2019 - ELIQUIS INCIDENTAL BENIGN RENAL CYSTS X 2 ON SONOGRAM 2023 VITAMIN D DEFICIENCY DISCUSSION: -he has ckd stage 3a which is acutely stable -He has multiple risk factors and renal risk is elevated -this is chronic and I do not see GN or acuity -gfr trend is stable x 5-10 years with only age related decline -suggest we focus on dm and bp control, avoidance of nephrotoxins, hydration and serial labs -I doubt that he had a renal embolus but with the h/o PE, it is possible -- renal sonogram did NOT show assymmetry or focal scar that would support that dx -I could not identify the source of the CHELSEA in 2012 but there was a clear change in gfr after that - fortunately he is relatively stable since then -agree with arb -agree with sglt2 -avoid nsaids and other nephrotoxins -optimize glucose control -some data suggests glp1 agonist may provide added cardio renal protection if that were to fit withhis DM regimen. I would not chose that over a SGTL2. -add vit d support to 2000 iu daily -6 mos with labs Orders Placed This Encounter Comprehensive Metabolic Panel Uric Acid Magnesium Phosphorus PTH, Intact Vitamin D 25 Hydroxy CBC and Differential Protein, Total, Random Urine w/Creatinine (Protein/Creat Ratio) cholecalciferol (VITAMIN D-3) 25 MCG (1000 UT) tablet Return in about 6 months (around 02/26/2026) for OV with labs 1-2 weeks prior to visit. Martínez Townsend MD documented in this encounter Plan of Treatment Upcoming Encounters Date Type Department Care Team (Late st Contact Info) Description 02/26/2026 8:20 AM EDT Office Visit [facility] [address] [phone] Martínez Townsend MD [address] [phone] Scheduled Orders Name Type Priority Associated Diagnoses Orde r Schedule Comprehensive Metabolic Panel Lab Routine Stage 3b chronic kidney disease (HCC) Type 2 diabetes mellitus with other diabetic kidney complication, not otherwise specified (HCC) Vitamin D deficiency, not otherwise specified Pulmonary embolism, not otherwise specified (HCC) Hypertension Dyslipidemia Diabetes mellitus, not otherwise specified (HCC) Crohn's disease, not otherwise specified (HCC) Expected: 02/26/2026, Expires: 09/28/2026 Uric Acid Lab Routine Stage 3b chronic kidney disease (HCC) Type 2 diabetes mellitus with other diabetic kidney complication, not otherwise specified (HCC) Vitamin D deficiency, not otherwise specified Pulmonary embolism, not otherwise specified (HCC) Hypertension Dyslipidemia Diabetes mellitus, not otherwise specified (HCC) Crohn's disease, not otherwise specified (HCC) Expected: 02/26/2026, Expires: 09/28/2026 Magnesium Lab Routine Stage 3b chronic kidney disease (HCC) Type 2 diabetes mellitus with other diabetic kidney complication, not otherwise specified (HCC) Vitamin D deficiency, not otherwise specified Pulmonary embolism, not otherwise specified (HCC) Hypertension Dyslipidemia Diabetes mellitus, not otherwise specified (HCC) Crohn's disease, not otherwise specified (HCC) Expected: 02/26/2026, Expires: 09/28/2026 Phosphorus Lab Routine Stage 3b chronic kidney disease (HCC) Type 2 diabetes mellitus with other diabetic kidney complication, not otherwise specified (HCC) Vitamin D deficiency, not otherwise specified Pulmonary embolism, not otherwise specified (HCC) Hypertension Dyslipidemia Diabetes mellitus, not otherwise specified (HCC) Crohn's disease, not otherwise specified (HCC) Expected: 02/26/2026, Expires: 09/28/2026 PTH, Intact Lab Routine Stage 3b chronic kidney disease (HCC) Type 2 diabetes mellitus with other diabetic kidney complication, not otherwise specified (HCC) Vitamin D deficiency, not otherwise specified Pulmonary embolism, not otherwise specified (HCC) Hypertension Dyslipidemia Diabetes mellitus, not otherwise specified (HCC) Crohn's disease, not otherwise specified (HCC) Expected: 02/26/2026, Expires: 09/28/2026 Vitamin D 25 Hydroxy Lab Routine Stage 3b chronic kidney disease (HCC) Type 2 diabetes mellitus with other diabetic kidney complication, not otherwise specified (HCC) Vitamin D deficiency, not otherwise specified Pulmonary embolism, not otherwise specified (HCC) Hypertension Dyslipidemia Diabetes mellitus, not otherwise specified (HCC) Crohn's disease, not otherwise specified (HCC) Expected: 02/26/2026, Expires: 09/28/2026 CBC and Differential Lab Routine Stage 3b chronic kidney disease (HCC) Type 2 diabetes mellitus with other diabetic kidney complication, not otherwise specified (HCC) Vitamin D deficiency, not otherwise specified Pulmonary embolism, not otherwise specified (HCC) Hypertension Dyslipidemia Diabetes mellitus, not otherwise specified (HCC) Crohn's disease, not otherwise specified (HCC) Expected: 02/26/2026, Expires: 09/28/2026 Protein, Total, Random Urine w/Creatinine (Protein/Creat Ratio) Lab Routine Stage 3b chronic kidney disease (HCC) Type 2 diabetes mellitus with other diabetic kidney complication, not otherwise specified (HCC) Vitamin D deficiency, not otherwise specified Pulmonary embolism, not otherwise specified (HCC) Hypertension Dyslipidemia Diabetes mellitus, not otherwise specified (HCC) Crohn's disease, not otherwise specified (HCC) Expected: 02/26/2026, Expires: 09/28/2026 documented as of this encounter Visit Diagnoses Diagnosis Stage 3b chronic kidney disease (HCC)- Primary Type 2 diabetes mellitus with other diabetic kidney complication, not otherwise specified (HCC) Vitamin D deficiency, not otherwise specified Pulmonary embolism, not otherwise specified (HCC) Hypertension Dyslipidemia Diabetes mellitus, not otherwise specified (HCC) Crohn's disease, not otherwise specified (HCC) documented in this encounter Care Teams Diesel Pile Driver Operator Relationship Specialty Start Date End Date Rosanna Talbert MD [address] [place] [id number] PCP - General Internal Medicine 06/29/24 documented as of this encounter
[2025-08-29 09:49] VITALS: BP 120/70; PULSE 106; O2SAT 95; BMI 30.5
--- NOTE | 2025-08-29 09:49 | A.OFFVIS_ITS ---
Vital Signs 08/29/25 09:49 Height 5 ft 4 in Weight 177 lb 11.081 oz BMI 30.5 BP 120/70 Blood Pressure Location Lt brachial Position Sitting Pulse 106 H Pulse Source Pulse Oximeter Pulse Oximetry (%) 95 Oxygen Delivery Method Room Air Intake Visit Reasons: 3months Intake Note: Pt present today for Enteropathy arthritis follow up. Accompanied by: Self / Same As Patient Allergies No Known Allergies Allergy (Verified 08/29/25 09:49) HPI HPI 3months: Details: He had increased diarrhea after last remicade 8 weeks ago. He stopped Trulicy started 3 months ago incase drug induced diarrhea was contributing. During this time he also started experiencing more joint pain in his hands. MS all day. Right hand is swollen. R 2nd finger triggers daily. He had remicade yesterday. PFSH Family History Mother Breast cancer Social History Alcohol intake: current Alcohol intake frequency: holidays/special occasions only Alcohol type: beer Patient Tobacco Use Status: Never used Tobacco Physical Exam Vital Signs: Last Vital Signs Pulse 106 H 08/29/25 09:49 BP 120/70 08/29/25 09:49 Pulse Ox 95 08/29/25 09:49 Oxygen Delivery Method Room Air 08/29/25 09:49 BMI result Body Mass Index 30.5 Const Other: General: Comfortable CVS: RRR Respiratory: clear to auscultation bilaterally. Good respiratory effort Skin: No lesions seen MSK: Triggering of right 2nd finger. R 2nd MCP synovitis present. Shoulder abduction 170 degrees with good internal and external rotation. He is unable to externally rotate his hips fully. Knee flexion is 90 degrees bilateral. No ankle tenderness or MTP tenderness. 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 He had a mild flare since starting Trulicy, which he discontinued. AST remains mildly elevated. Rheumatology history: He was on Humira for years for Crohn's disease prescribed by GI. Humira frequency was increased to weekly without improvement of inflammatory arthritis. Sulfasalazine added 07/2019-07/2020 d/c ineffective. He had a bad reaction on Imuran and may have had transaminitis. Ustekinumab 06/2020 to present ineffective for inflammatory arthritis and Crohn's disease. He also has scalp psoriasis. He did not tolerate Methotrexate 06/05/2021 SC injection but had improvement in chronic synovial thickening of MCPs on po MTX 12.5mg qw 07/04/2021 clinic visit then was lost to follow-up. Chronic uncontrolled inflammatory arthritis cause joint space narrowing of right 1st and 2nd MCPs. GI PA Nickolas Briscoe is aware of labs revealing mild transaminitis 2024. He did not recommend further imaging as CT enterography revealed normal liver 2023. Code(s): M07.60 - Enteropathic arthropathies, unspecified site Category: Medical Plan: Continue infliximab 3 milligram/kilogram every 8 weeks Labs for disease and drug monitoring ordered GI follow-up yearly Return to clinic in 3 months (2) Trigger finger of right thumb: Comment: Resolved with last cortisone injection 09/2024. Code(s): M65.311 - Trigger thumb, right thumb Category: Medical Plan: Monitor clinically (3) Crohn disease: Code(s): K50.90 - Crohn's disease, unspecified, without complications Category: Medical Qualifiers: Digestive disease complication type: unspecified complication Gastrointestinal tract location: small intestine Qualified Code(s): K50.019 - Crohn's disease of small intestine with unspecified complications Plan: See above (4) Transaminitis: Comment: Mild elevation in AST. CT enterography 07/2024 revealed normal liver. Code(s): R74.01 - Elevation of levels of liver transaminase levels Category: Medical Plan: Repeat liver function tests today (5) Trigger finger, right index finger: Code(s): M65.321 - Trigger finger, right index finger Category: Medical Plan: Patient received right 2nd trigger finger injection Consider splinting from [facility] if it reoccurs. Reviewed splinting with patient. RTC 3 months Orders: Orders Creatinine Today Z79.899 - Other [facility] (current) drug therapy Complete Blood Count Auto Diff Today Z79.899 - Other superintendent terminal (current) drug therapy Alanine Aminotransferase Today Z79.899 - Other [facility] terminal (current) drug therapy Aspartate Amino Transferase Today Z79.899 - Other [facility] terminal (current) drug therapy C Reactive Protein Today Z79.899 - Other [facility] terminal (current) drug therapy Erythrocyte Sedimentation Rate Today Z79.899 - Other [facility] terminal (current) drug therapy Coding Level of Care Code Est Pt Level 4 (60177) Complex visit Add On G2211 Diagnoses Enteropathic arthritis M07.60 Trigger finger of right thumb M65.311 Crohn's disease of small intestine with complication K50.019 Digestive disease complication type: unspecified complication Gastrointestinal tract location: small intestine Transaminitis R74.01 Trigger finger, right index finger M65.321
--- OUTSIDE RECORDS SUMMARY | 2025-08-29 10:53 | XMS_ITS | Encounter Summary ---
Author Organization [facility] Address [address] [place] [phone] Phone Care Team Providers Care Carpenter Helper Name Role Phone Jose Dukes MD Primary Care Provider Keila Hodge MD Unavailable Encounter Details Date Type Department Care Team (Late st Contact Info) Description 10/23/2021 Procedure Pass [facility] Periop [address] [place] [address] Social History Tobacco Use Types Packs/Day Years Used Date Smoking Tobacco: Former Cigarettes Smokeless Tobacco: Never Comments:in [facility] Alcohol Use Standard Drinks/Week Comments Yes [...] on filedocumented in this encounter Care Teams Carpenter Helper Relationship Specialty Start Date End Date Jose Dukes MD [address] [place] [id number] PCP - General Internal Medicine 12/26/14 Keila Hodge MD [address] [place] [address] [id number] Cardiology 10/15/21 documented as of this encounter Additional Source Comments The information contained in this document represents components of the legal health record. It is not the complete legal health record.[facility]
--- OUTSIDE RECORDS SUMMARY | 2025-08-29 10:53 | XMS_ITS | Encounter Summary ---
Author Organization [facility] Address [address] [place] [phone] Phone Care Team Providers Care Weight Loss Sales Consultant Name Role Phone Jose Dukes MD Primary Care Provider Keila Hodge MD Unavailable [phone] Encounter Details Date Type Department Care Team (Late st Contact Info) Description 07/25/2025 Orders Only [facility] [place] [address] [place] [address] Fay Beebe PA-C [address] [place] [address] [email or web address] Social History Tobacco Use Types Packs/Day Years Used Date Smoking Tobacco: Former Cigarettes Smokeless Tobacco: Never Comments:in high [facility] Alcohol Use Standard Drinks/Week Comments Yes 0 [...] on filedocumented in this encounter Care Teams Weight Loss Sales Consultant Relationship Specialty Start Date End Date Jose Dukes MD [address] [place] [id number] PCP - General Internal Medicine 12/26/14 Keila Hodge MD [address] [place] [address] [email or web address] Cardiology 10/15/21 documented as of this encounter Additional Source Comments The information contained in this document represents components of the legal health record. It is not the complete legal health record.[facility]
--- OUTSIDE RECORDS SUMMARY | 2025-08-29 10:53 | XMS_ITS | Encounter Summary ---
Author Organization [facility] Address [address] [address] Phone Care Team Providers Care Car Loader Name Role Phone Rosanna Talbert MD Primary Care Provider [phone] Encounter Details Date Type Department Care Team (Late Contact Info) Description 08/29/2025 Orders Only [facility] [address] [phone] Martínez Townsned MD [address] [phone] Stage 3b chronic kidney disease (HCC); Hypertension; Dyslipidemia; Diabetes mellitus, not otherwise specified (HCC); Crohn's disease, not otherwise specified (HCC); Complex regional pain syndrome; Vitamin D deficiency, not otherwise specified Social History Tobacco Use Types Packs/Day Years [...] as of this encounter Plan of Treatment Upcoming Encounters Date Type Department Care Team (Late Contact Info) Description 02/26/2026 8:20 AM EDT Office Visit [facility] [address] [phone] Martínez Townsend MD [address] [place] [phone] documented as of this encounter Procedures Procedure Name Priority Date/Time Associated Diagnosis Comments PROTEIN / CREATININE RATIO, URINE Routine 08/21/2025 2:09 PM EST VITAMIN D 25 HYDROXY Routine 08/21/2025 2:09 PM EST CBC AND DIFFERENTIAL Routine 08/21/2025 2:09 PM EST URIC ACID Routine 08/21/2025 2:09 PM EST PHOSPHATE ( PHOSPHORUS) Routine 08/21/2025 2:09 PM EST PTH, INTACT Routine 08/21/2025 2:09 PM EST MAGNESIUM Routine 08/21/2025 2:09 PM EST COMPREHENSIVE METABOLIC PANEL Routine 08/21/2025 2:09 PM EST documented in this encounter Results * (ABNORMAL) PTH, Intact (08/21/2025 2:09 PM EST) PTH 11(L) 15 - 65 pg/mL [facility] 08/21/2025 2:09 PM EST 08/21/2025 us Martínez Townsend MD LAB BLOOD ORDERABLES Final Re sult [facility] [address] [place] [address] * Magnesium (08/21/2025 2:09 PM EST) Magnesium 1.7 1.6 - 2.3 mg/dL [facility] 08/21/2025 2:09 PM EST 08/21/2025 Martínez Townsend MD LAB BLOOD ORDERABLES Final Re sult [facility] [place] [address], [address] [place] [address] * Phosphorus (08/21/2025 2:09 PM EST) Phosphorus 3.9 2.8 - 4.1 mg/dL [facility] [place] 08/21/2025 2:09 PM EST 08/21/2025 Martínez Townsend MD LAB BLOOD ORDERABLES Final Re sult Performing Organization Address [facility]/ZIP Co de Phone Number [facility] [place] [address], [address] [place] [address] * Uric Acid (08/21/2025 2:09 PM EST) Uric Acid 6.4 3.8 - 8.4 mg/dL [facility] [place] Comment:Therapeutic target f or gout patients: <6.0 08/21/2025 2:09 PM EST 08/21/2025 Martínez Townsend MD LAB BLOOD ORDERABLES Final Re sult [facility] [place] [address], [address] [place] [address] * (ABNORMAL) Vitamin D 25 Hydroxy (08/21/2025 2:09 PM EST) Vitamin D, 25-OH, Total 25.2(L) 30.0 - 100.0 ng/mL [facility] Comment: Vitamin D deficiency has been defined by the [place] of Medicine and an Endocrine Society practice guideline as a level of serum 25-OH vitamin D less than 20 ng/mL (1,2). The Endocrine Society went on to further define vitamin D insufficiency as a level between 21 and 29 ng/mL (2). 1. IOM ([place] of Medicine). 2010. Dietary reference intakes for calcium and D. [place]: The National Academies Press. 2. Elis MF, Mahin MCKEON, Corey MASTERS, et al. Evaluation, treatment, and prevention of vitamin D deficiency: an Endocrine Society clinical practice guideline. JCEM. 2010; 96(9):1911-30. 08/21/2025 2:09 PM EST 08/21/2025 us Martínez Townsend MD LAB BLOOD ORDERABLES Final Re sult Performing Organization Address [facility] Co de Phone Number [facility] [address] [place] [address] * Protein, Total, Random Urine w/Creatinine (Protein/Creat Ratio) (08/21/2025 2:09 PM EST) Creatinine, Ur 103.6 Not Estab. mg/dL [facility] Protein, Ur 18.7 Not Estab. mg/dL [facility] Urine Protein/Creatin ine Ratio 181 0 - 200 mg/g creat [facility] 08/21/2025 2:09 PM EST 08/21/2025 us Martínez Townsend MD LAB URINE ORDERABLES Final Re sult Performing Organization Address City/[facility]/ZIP Co de Phone Number [employer] [facility] [address] [place] [address] * (ABNORMAL) Comprehensive Metabolic Panel (08/21/2025 2:09 PM EST) Glucose 176(H) 70 - 99 mg/dL [facility] [place] BUN 20 8 - 27 mg/dL [facility] [place] Creatinine 1.40(H) 0.76 - 1.27 mg/dL [facility] [place] eGFR CKD-EPI CR 2020 54(L) >59 mL/min/1.7 3 [facility] [place] BUN/Creatinine Ratio 14 10 - 24 [facility] Sodium 140 134 - 144 mmol/L [facility] [place] Potassium 4.3 3.5 - 5.2 mmol/L [facility] Bicarbonate (CO2) 25 20 - 29 mmol/L [facility] Calcium 10.1 8.6 - 10.2 mg/dL [facility] [place] Total Protein 6.8 6.0 - 8.5 g/dL [facility] [place] Albumin 4.3 3.9 - 4.9 g/dL [facility] [place] Globulin 2.5 1.5 - 4.5 g/dL [facility] Total Bilirubin 0.6 0.0 - 1.2 mg/dL [facility] [place] Alkaline Phosphatase 79 47 - 123 IU/L [facility] [place] AST (SGOT) 35 0 - 40 IU/L [facility] ALT (SGPT) 30 0 - 44 IU/L [facility] Chloride 104 96 - 106 mmol/L [facility] 08/21/2025 2:09 PM EST 08/21/2025 us Martínez Townsend MD LAB BLOOD ORDERABLES Final Re sult [facility] [address], [address] [place] [address] * (ABNORMAL) CBC and Differential (08/21/2025 2:09 PM EST) Pathologist [facility] WBC 10.2 3.4 - 10.8 x10E3/uL [facility] RBC 4.62 4.14 - 5.80 x10E6/uL [facility] Hemoglobin 15.4 13.0 - 17.7 g/dL [facility] Hematocrit 45.8 37.5 - 51.0 % [facility] MCV 99(H) 79 - 97 fL [facility] MCH 33.3(H) 26.6 - 33.0 pg [facility] MCHC 33.6 31.5 - 35.7 g/dL [facility] RDW 13.2 11.6 - 15.4 % [facility] Platelets 245 150 - 450 x10E3/uL [facility] Neutrophils Relative 60 Not Estab. % [facility] Lymphocytes Relative 29 Not Estab. % [facility] Monocytes 8 Not Estab. % [facility] Eosinophils Relative 2 Not Estab. % [facility] Basophils Relative 0 Not Estab. % [facility] Neutrophils Absolute 6.0 1.4 - 7.0 x10E3/uL [facility] Lymphocytes Absolute 3.0 0.7 - 3.1 x10E3/uL [facility] Monocytes Absolute 0.9 0.1 - 0.9 x10E3/uL [facility] Eosinophils Absolute 0.2 0.0 - 0.4 x10E3/uL [facility] Basophils Absolute 0.0 0.0 - 0.2 x10E3/uL [facility] Immature Granulocytes 1 Not Estab. % [facility] Immature Grans (Absolute) 0.1 0.0 - 0.1 x10E3/uL [facility] 08/21/2025 2:09 PM EST 08/21/2025 us Martínez Townsend MD LAB BLOOD ORDERABLES Final Re sult [facility] [address] [place] [address] documented in this encounter Visit Diagnoses Diagnosis Stage 3b chronic kidney disease (HCC) Hypertension Dyslipidemia Diabetes mellitus, not otherwise specified (HCC) Crohn's disease, not otherwise specified (HCC) Complex regional pain syndrome Vitamin D deficiency, not otherwise specified documented in this encounter Care Teams Car Loader Relationship Specialty Start Date End Date Rosanna Talbert MD [address] [place] [address] PCP - General Internal Medicine 06/29/24 documented as of this encounter
--- OUTSIDE RECORDS SUMMARY | 2025-08-29 10:53 | XMS_ITS | Clinical Summary ---
Author Organization [facility] Address [address] [facility] [address] [place] [address] Phone Care Team Providers Care Environmental Health Technician Name Role Phone Rosanna Talbert MD Primary Care Provider [phone] Allergies No known active allergies Medications zolpidem CR (AMBIEN CR) 6.25 MG CR tablet Take 6.25 mg by mouth at night if needed for sleep Do not crush, chew, or split. Active insulin aspart (NovoLOG) 100 UNIT/ML patient [...] least 30 minutes after.. Active Multiple Vitamin (multivitamin ) tablet Take 1 tablet by mouth 1 (one) time each day Active Turmeric (QC TUMERIC COMPLEX PO) Take 1,000 mg by mouth 1 (one) time each day Active inFLIXimab (REMICADE) 100 MG injection Infuse into a venous catheter Active cholecalcifer ol (VITAMIN D-3) 25 MCG (1000 UT) tablet Take 2 tablets (2,000 Units total) by mouth 1 (one) time each day 180 tablet 3 08/28/20 25 026 Active apixaban (ELIQUIS) 5 MG tablet Take 5 mg by mouth in the morning and 5 mg in the evening. 025 Discontinued insulin lispro (HumaLOG) 100 UNIT/ML injection Insulin pump Basal rate 12am-6am- 1.65 units/hour 6am-12pm- 1.7 units/hour 12pm-6pm- 2 units/hour 6pm-12pm- 2.5 units/hour 025 Discontinued cholecalcifer ol (VITAMIN D-3) 25 MCG (1000 UT) tablet Take 1 tablet (1,000 Units total) by mouth 1 (one) time each day 90 tablet 3 02/28/20 25 025 Discontinued(R eorder (does not appear on AVS)) Active Problems Problem Noted Date Diagnosed Date [...] Encounters Date Type Department Care Team Description 08/29/2025 Orders Only [facility] [address] [phone] Martínez Townsend MD Stage 3b chronic kidney disease (HCC); Hypertension; Dyslipidemia; Diabetes mellitus, not otherwise specified (HCC); Crohn's disease, not otherwise specified (HCC); Complex regional pain syndrome; Vitamin D deficiency, not otherwise specified 08/28/2025 8:20 AM EST Office Visit [facility] [address] [phone] Martínez Townsend MD Stage 3b chronic kidney disease (HCC) (Primary Dx); Type 2 diabetes mellitus with other diabetic kidney complication, not otherwise specified (HCC); Vitamin D deficiency, not otherwise specified; Pulmonary embolism, not otherwise specified (HCC); Hypertension; Dyslipidemia; Diabetes mellitus, not otherwise specified (HCC); Crohn's disease, not otherwise specified (HCC) from Last 3 Months Social History Tobacco [...] (175 lb) 08/28/2025 8:19 AM EST Height 160 cm (5' 3 ) 06/29/2024 8:44 AM EDT Body Mass Index 31 06/29/2024 8:44 AM EDT Plan of Treatment Upcoming Encounters Date Type Department Care Team (Late st Contact Info) Description 02/26/2026 8:20 AM EDT Office Visit [facility] [address] [phone] Martínez Townsend MD [address] [phone] Health Maintenance Due Date Last Done Comments [...] Procedure Name Priority Date/Time Associated Diagnosis Comments PTH, INTACT Routine 08/21/2025 2:09 PM EST MAGNESIUM Routine 08/21/2025 2:09 PM EST PHOSPHATE ( PHOSPHORUS) Routine 08/21/2025 2:09 PM EST URIC ACID Routine 08/21/2025 2:09 PM EST VITAMIN D 25 HYDROXY Routine 08/21/2025 2:09 PM EST PROTEIN / CREATININE RATIO, URINE Routine 08/21/2025 2:09 PM EST COMPREHENSIVE METABOLIC PANEL Routine 08/21/2025 2:09 PM EST CBC AND DIFFERENTIAL Routine 08/21/2025 2:09 PM EST from Last 3 Months Results * Protein, Total, Random Urine w/Creatinine (Protein/Creat Ratio) (08/21/2025 2:09 PM EST) Creatinine, Ur 103.6 Not Estab. mg/dL [facility] Protein, Ur 18.7 Not Estab. mg/dL [facility] Urine Protein/Creatin ine Ratio 181 0 - 200 mg/g creat [facility] 08/21/2025 2:09 PM EST 08/21/2025 us Martínez Townsend MD LAB URINE ORDERABLES Final Re sult [facility] [address] [place] [address] * (ABNORMAL) Vitamin D 25 Hydroxy (08/21/2025 2:09 PM EST) Pathologist [facility] Vitamin D, 25-OH, Total 25.2(L) 30.0 - 100.0 ng/mL [facility] Comment: Vitamin D deficiency has been defined by the [place] of Medicine and an Endocrine Society practice guideline as a level of serum 25-OH vitamin D less than 20 ng/mL (1,2). The Endocrine Society went on to further define vitamin D insufficiency as a level between 21 and 29 ng/mL (2). 1. IOM ([place] of Medicine). 2010. Dietary reference intakes for calcium and D. [place]: The National Academies Press. 2. Elis MF, Mahin MCKEON, Corey MASTERS, et al. Evaluation, treatment, and prevention of vitamin D deficiency: an Endocrine Society clinical practice guideline. JCEM. 2010; 96(7):1911-30. 08/21/2025 2:09 PM EST 08/21/2025 us Martínez Townsend MD LAB BLOOD ORDERABLES Final Re sult [facility] [place] [address] [place] [address] * (ABNORMAL) CBC and Differential (08/21/2025 2:09 PM EST) Pathologist [facility] WBC 10.2 3.4 - 10.8 x10E3/uL [facility] RBC 4.62 4.14 - 5.80 x10E6/uL [facility] Hemoglobin 15.4 13.0 - 17.7 g/dL [facility] Hematocrit 45.8 37.5 - 51.0 % [facility] MCV 99(H) 79 - 97 fL [facility] MCH 33.3(H) 26.6 - 33.0 pg [facility] MCHC 33.6 31.5 - 35.7 g/dL [facility] RDW 13.2 11.6 - 15.4 % [facility] Platelets 245 150 - 450 x10E3/uL [facility] Neutrophils Relative 60 Not Estab. % [facility] Lymphocytes Relative 29 Not Estab. % [facility] Monocytes 8 Not Estab. % [facility] Eosinophils Relative 2 Not Estab. % [facility] Basophils Relative 0 Not Estab. % [facility] Neutrophils Absolute 6.0 1.4 - 7.0 x10E3/uL [facility] Lymphocytes Absolute 3.0 0.7 - 3.1 x10E3/uL [facility] Monocytes Absolute 0.9 0.1 - 0.9 x10E3/uL [facility] Eosinophils Absolute 0.2 0.0 - 0.4 x10E3/uL [facility] Basophils Absolute 0.0 0.0 - 0.2 x10E3/uL [facility] Immature Granulocytes 1 Not Estab. % [facility] Immature Grans (Absolute) 0.1 0.0 - 0.1 x10E3/uL [facility] 08/21/2025 2:09 PM EST 08/21/2025 us Martínez Townsend MD LAB BLOOD ORDERABLES Final Re sult [facility] [address] [place] [address] * Uric Acid (08/21/2025 2:09 PM EST) Uric Acid 6.4 3.8 - 8.4 mg/dL [facility] Comment:Therapeutic target f or gout patients: <6.0 08/21/2025 2:09 PM EST 08/21/2025 Martínez Townsend MD LAB BLOOD ORDERABLES Final Re sult [facility] [address], [address] [place] [address] * Phosphorus (08/21/2025 2:09 PM EST) Pathologist [facility] Phosphorus 3.9 2.8 - 4.1 mg/dL [facility] 08/21/2025 2:09 PM EST 08/21/2025 Martínez Townsend MD LAB BLOOD ORDERABLES Final Re sult Performing Organization Address [facility]/ZIP Co de Phone Number [email or web address] [place] [address], [address] [place] [address] * (ABNORMAL) PTH, Intact (08/21/2025 2:09 PM EST) PTH 11(L) 15 - 65 pg/mL [facility] 08/21/2025 2:09 PM EST 08/21/2025 Martínez Townsend MD LAB BLOOD ORDERABLES Final Re sult [email or web address] [place] [address], [address] [place] [address] * Magnesium (08/21/2025 2:09 PM EST) Magnesium 1.7 1.6 - 2.3 mg/dL [facility] [place] 08/21/2025 2:09 PM EST 08/21/2025 us Martínez Townsend MD LAB BLOOD ORDERABLES Final Re sult [facility] [place] [address] [place] [address] * (ABNORMAL) Comprehensive Metabolic Panel (08/21/2025 2:09 PM EST) Pathologist [facility] Glucose 176(H) 70 - 99 mg/dL [facility] BUN 20 8 - 27 mg/dL [facility] Creatinine 1.40(H) 0.76 - 1.27 mg/dL [facility] [place] eGFR CKD-EPI CR 2020 54(L) >59 mL/min/1.7 3 [facility] [place] [facility] BUN/Creatinine Ratio 14 10 - 24 [facility] Sodium 140 134 - 144 mmol/L [facility] Potassium 4.3 3.5 - 5.2 mmol/L [facility] Bicarbonate (CO2) 25 20 - 29 mmol/L [facility] Calcium 10.1 8.6 - 10.2 mg/dL [facility] Total Protein 6.8 6.0 - 8.5 g/dL [facility] Albumin 4.3 3.9 - 4.9 g/dL [facility] Globulin 2.5 1.5 - 4.5 g/dL [facility] Total Bilirubin 0.6 0.0 - 1.2 mg/dL [facility] [place] Alkaline Phosphatase 79 47 - 123 IU/L [facility] AST (SGOT) 35 0 - 40 IU/L [facility] ALT (SGPT) 30 0 - 44 IU/L [facility] Chloride 104 96 - 106 mmol/L [facility] [place] 08/21/2025 2:09 PM EST 08/21/2025 us Martínez Townsend MD LAB BLOOD ORDERABLES Final Re sult [facility] [place] [address] [place] [address] from Last 3 Months Insurance Medicare [facility] Medicare [facility] Care Teams Environmental Health Technician Relationship Specialty Start Date End Date Rosanna Talbert MD [address] [place] [address] PCP - General Internal Medicine 06/29/24
--- OUTSIDE RECORDS SUMMARY | 2025-08-29 10:53 | XMS_ITS | Clinical Summary ---
Author Organization [facility] Address [address] [facility] [address] [place] [address] Phone Care Team Providers Care Strip Picker Name Role Phone Jose Dukes MD Primary Care Provider Keila Hodge MD Unavailable [phone] Allergies No known active allergies Medications VITAMIN B COMPLEX ORAL Take by mouth. Active apixaban (ELIQUIS ORAL) Take 5 mg by mouth 2 (two) times a day. Active metFORMIN (GLUCOPHAGE) 500 MG tablet Active valsartan (DIOVAN) 80 MG tablet 1 Active rosuvastatin (CRESTOR) 10 MG tablet Take by mouth daily. 1 Active colesevelam (WELCHOL) 625 mg tablet Take 1,875 mg by mouth. 1 Active insulin lispro (HUMALOG U-100 INSULIN) 100 unit/mL Crtg Insulin pump Basal rate 12am-6am- 1.65 units/hour 6am-12pm- 1.7 units/hour 12pm-6pm- 2 units/hour 6pm-12pm- 2.5 units/hour Active empagliflozin (JARDIANCE) 25 mg tablet Take 25 mg by mouth. 2 Active OMNIPOD DASH PODS, GEN 4, Crtg 3 Active doxycycline monohydrate (ADOXA) 50 MG tablet 3 Active NOVOLOG U-100 INSULIN ASPART 100 unit/mL injection vial 3 Active amoxicillin (AMOXIL) 500 MG capsule Take 4 capsules (2,000 mg total) by mouth once as needed (One hour before dental procedure). 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 f/b Dr. [employer] Doctor (Dr. 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 denies any symptoms currently. Arthritis DM (diabetes mellitus) Overview (10/15/2021): type 2. in setting fo steroid for crohn's disease. currently on Insulin Pump. Most recent A1c 7.3 per patient. average BG 80-115 in am. HLD (hyperlipidemia) HTN (hypertension) Encounters Date Type Department Care Team Description 07/25/2025 Orders Only [facility] Orthopedics at [address] [address] Fay Beebe PA-C from Last 3 Months Social History Tobacco Use Types Packs/Day Years Used Date Smoking Tobacco: Former Cigarettes Smokeless Tobacco: Never Comments:in [facility] Alcohol Use Standard Drinks/Week Comments Yes [...] FOBT 2001 SIGMOIDOSCOPY 2001 VIRTUAL COLONOSCOPY 2001 RSV VACCINE (1 - Risk 50-74 years 1-dose series) 2006 ZOSTER VACCINES (1 of 2) 2006 ABDOMINAL AORTIC ANEURYSM (AAA) SCREENING 2021 DIABETIC EYE EXAM 10/15/2021 HEMOGLOBIN A1C 04/14/2022 10/15/2021 CREATININE LEVEL 10/19/2022 10/19/2021, 10/15/2021 POTASSIUM LEVEL 10/19/2022 10/19/2021, 10/15/2021 INFLUENZA VACCINE (#1) 2025 , 07/18/2021, 06/22/2020, Additional history exists COVID-19 VACCINE (3 - 2024- season) 2025 01/13/2021, 12/15/2020 HEPATITIS [...] this topic Medical Devices Implanted Type Area Operational Risk Analyst Device Identifier Shelf Expiration Date Model / Serial / Lot Femoral Head 28mm Plus 1.5 Articuleze Biolox Delta Ceramic 09/10 Tapered - [id number] Implanted:Qty: 1 on 10/18/2021 by Dez Sykes MD at [facility] STANDARD Left: Hip [employer]J [employer] [id number] / / Hip Hardware Hip Liner [id number] Acetabular Vivacit-E Dm - [id number] Implanted:Qty: 1 on 10/18/2021 by Dez Sykes MD at [facility] Left: Hip JAZ / DIV OF [employer] 08/07/2026 [id number] / / [id number] Description:Transferred from one time implant Acetabular Shell Sz 60 Multiholemm Liner G 08 - [id number] Implanted:Qty: 1 on 10/18/2021 by Dez Sykes MD at [facility] Left: Hip [employer] [id number] 10/20/2028 [id number] / / [id number] Screw Bone 6.5x25mm Hip Acetabular Dome G7 Low Profile - [id number] Implanted:Qty: 1 on 10/18/2021 by Dez Sykes MD at [facility] Left: Hip [employer] [id number] 02/27/2031 [id number] / / [id number] Screw Dome 6.5x35mm G7 Aceetabular Low Profile Hip - [id number] Implanted:Qty: 1 on 10/18/2021 by Dez Sykes MD at [facility] Left: Hip [employer] [id number] 11/29/2030 [id number] / / [id number] Screw Bone 6.5x30mm Hip Dome G7 Acetabular Low Profile - [id number] Implanted:Qty: 1 on 10/18/2021 by Dez Sykes MD at [facility] Left: Hip [employer] [id number] 03/28/2031 [id number] / / [id number] Screw Bone 6.5x15mm Acetabular G7 Low Profile Dome - [id number] Implanted:Qty: 1 on 10/18/2021 by Dez Sykes MD at [facility] Left: Hip [employer] [id number] 03/13/2031 [id number] / / [id number] Screw Bone 6.5x15mm Acetabular G7 Low Profile Dome - [id number] Implanted:Qty: 1 on 10/18/2021 by Dez Sykes MD at [facility] Left: Hip [employer] [id number] 03/13/2031 [id number] / / [id number] Acetabular Liner 46mm Component Dual Mobility G7 - [id number] Implanted:Qty: 1 on 10/18/2021 by Dez Sykes MD at [facility] Left: Hip JAZ / DIV OF [employer] [id number] 07/30/2031 [id number] / / [id number] Hip Stem Sz 7 Actis Duofix Cementless Std Collar - [id number] Implanted:Qty: 1 on 10/18/2021 by Dez Sykes MD at [facility] Left: Hip [facility] [id number] 08/27/2031 [id number] / / [id number] Procedures Procedure Name Priority Date/Time Associated Diagnosis Comments BASIC METABOLIC PANEL (BMP) Routine 10/19/2021 8:46 AM EST HEMOGLOBIN A1C Routine 10/15/2021 12:51 PM EST DM (diabetes mellitus) from Last 3 Months or Most Recently Relevant to Health Maintenance Results * (ABNORMAL) Basic metabolic panel (10/19/2021 8:46 AM EST) SODIUM 135(L) 136 - 145 mmol/L [facility] POTASSIUM 5.1 3.4 - 5.1 mmol/L [facility] CHLORIDE 101 98 - 107 mmol/L [facility] CO2 22 22 - 31 mmol/L [facility] BUN 32(H) 6 - 23 mg/dL [facility] CREATININE 1.61(H) 0.50 - 1.20 mg/dL [facility] GLUCOSE 352(H) 70 - 100 mg/dL [facility] CALCIUM 8.4(L) 8.8 - 10.7 mg/dL [facility] EGFR 47(L) >59 mL/min/1. 73m2 [facility] Comment:Estimated glomerular filtration rate calculated using the CKD-EPI refit equation. ANION GAP 12 7 - 17 mmol/L [facility] Blood 10/19/2021 8:46 AM EST 10/19/2021 8:54 AM EST us Dez Sykes MD LAB BLOOD BKR ORDERABLES Final R esult [facility] [address] [place] [address] * (ABNORMAL) Hemoglobin A1c (10/15/2021 12:51 PM EST) HEMOGLOBIN A1C 7.0(H) 4.3 - 5.8 % [facility] Blood 10/15/2021 12:5 1 PM EST 10/15/2021 12:56 PM EST us Dez Sykes MD LAB BLOOD BKR ORDERABLES Final R esult [facility] [address] [place] [address] from Last 3 Months or Most Recently Relevant to Health Maintenance Insurance [facility] MEDEX SUPPLEMENT MEDICARE PART A & B MEDEX SUPPLEMENT MEDICARE PART A & B [employer] MEDEX SUPPLEMENT MEDICARE PART A & B [employer] MEDEX SUPPLEMENT MEDICARE PART A & B [employer] MEDEX SUPPLEMENT MEDICARE PART A & B [employer] MEDEX SUPPLEMENT MEDICARE PART A & B [employer] MEDEX SUPPLEMENT MEDICARE PART A & B [employer] MEDEX SUPPLEMENT MEDICARE PART A & B MEDEX SUPPLEMENT MEDICARE PART A & B MEDICARE PART A & B [employer]OSS MEDEX SUPPLEMENT Advance Directives For more information, please contact: [phone] (9AM - 5PM [facility], Thursday-Thursday) * Full Code (Latest Code Status on File) Date Activated Date Inactivated Comments 10/18/2021 7:59 PM Question Answer Comments Code Status Confirmed With: Patient Care Teams Strip Picker Relationship Specialty Start Date End Date Jose Dukes MD [address] [place] [address] PCP - General Internal Medicine 12/26/14 Keila Hodge MD [address] [place] [address] Cardiology 10/15/21 Additional Source Comments The information contained in this document represents components of the legal health record. It is not the complete legal health record.[facility]
--- OUTSIDE RECORDS SUMMARY | 2025-08-29 10:53 | XMS_ITS | Encounter Summary ---
Author Organization [facility] Address [address] [place] [address] Phone Care Team Providers Care Bureau Chief Name Role Phone Jose Dukes MD Primary Care Provider Keila Hodge MD Unavailable [phone] Encounter Details Date Type Department Care Team (Late st Contact Info) Description 10/18/2021 Procedure Pass [facility] Periop [address] [place] [address] Social History Tobacco Use Types Packs/Day Years Used Date Smoking Tobacco: Former Cigarettes Smokeless Tobacco: Never Comments:in [facility] Alcohol Use Standard Drinks/Week Comments Yes [...] 10/18/2021 7:53 PM Kenneth Canela RN * [place] Suicide Severity Rating Scale (Screener/Recent Self-Report) Question [...] on filedocumented in this encounter Care Teams Bureau Chief Relationship Specialty Start Date End Date Jose Dukes MD [address] [place] [address] PCP - General Internal Medicine 12/26/14 Keila Hodge MD [address] [place] [address] [email or web address] Cardiology 10/15/21 documented as of this encounter Additional Source Comments The information contained in this document represents components of the legal health record. It is not the complete legal health record.[facility]
== END 2025-08-29 10:34 | disposition home or self-care (01) ==
LOC: HO.RHES 09:47
PROVIDERS: PCP Internal Medicine; Visit Provider Internal Medicine Rheumatology
DX: M65.321 Trigger finger, right index finger (principal); M07.60 Enteropathic arthropathies, unspecified site; M65.311 Trigger thumb, right thumb; K50.019 Crohn's disease of small intestine with unspecified complications; R74.01 Elevation of levels of liver transaminase levels
CPT/HCPCS: 20550; 99214